=== PATIENT | male | born 1935 | race Caucasian/White ===

== ENCOUNTER 2017-07-01 00:09 | Inpatient (IN) | payer MEDICARE ==
[~2017-07-01] VITALS: Ht 175.3 cm; Wt 73.0 kg
[~2017-07-01 00:09] MED LIST: ASCO125T PO; AZIT250T3 PO; CALC600T12 PO; FENO48TA15 PO; GABA100C PO; GLYB2.5T4 PO; METF500T PO; MULT-1085 PO; OMEG500C PO
[2017-07-01] MEDS ORDERED: nitroGLYCERIN 0.4mg SUBLingual tab SL PRN ×4 (00:10→07:40)
[2017-07-01] MEDS ORDERED: aspirin 81mg tab.chew PO ONE (00:10)
[2017-07-01] MEDS ORDERED: morphine 4 MG/ML inj SYRINge IV ONE (00:30)
[2017-07-01] MEDS ORDERED: ondansetron/PF 4mg/2ml inj IV ONE (00:30)
[2017-07-01 00:44] LABS: BASOPHILS # (AUTO) 0.1 X10'3 (0-0.2); BASOPHILS % (AUTO) 0.5 % (0-1); EOSINOPHILS # (AUTO) 0.1 X10'3 (0-0.9); EOSINOPHILS % (AUTO) 0.9 % (0-6); HEMATOCRIT 43.6 % (42.0-52.0); HEMOGLOBIN 14.4 g/dl (14.0-17.9); LYMPHOCYTES # (AUTO) 2.8 X10'3 (1.1-4.8); LYMPHOCYTES % (AUTO) 28.1 % (21-51); MEAN CORPUSCULAR HEMOGLOBIN 31.7 PG (27.0-31.0); MEAN CORPUSCULAR HGB CONC 33.1 % (33.0-36.5); MEAN CORPUSCULAR VOLUME 95.7 FL (78-98); MEAN PLATELET VOLUME 7.7 FL (7.4-10.4); MONOCYTES # (AUTO) 0.7 X10'3 (0-0.9); MONOCYTES % (AUTO) 6.5 % (2-12); NEUTROPHILS # (AUTO) 6.4 X10'3 (1.8-7.7); PLATELET COUNT 283 X10'3 (140-440); RED BLOOD COUNT 4.56 X10'6 (4.70-6.10); RED CELL DISTRIBUTION WIDTH 13.7 % (11.5-14.5); WHITE BLOOD COUNT 10.1 X10'3 (4.5-11.0)
[2017-07-01 00:52] LABS: ALANINE AMINOTRANSFERASE 31 U/L (12-78); ALBUMIN 3.9 G/DL (3.4-5.0); ALKALINE PHOSPHATASE 77 IU/L (46-116); ANION GAP 14 (8-16); ASPARTATE AMINO TRANSFERASE 16 U/L (10-37); BILIRUBIN,TOTAL 0.3 MG/DL (0.1-1.0); BLOOD UREA NITROGEN 22 MG/DL (7-18); BUN/CREATININE RATIO 18.6 (5.4-32.0); CALCIUM 9.7 MG/DL (8.5-10.1); CHLORIDE 95 MMOL/L (99-107); CREATININE 1.18 MG/DL (0.60-1.10); GLUCOSE 250 MG/DL (70-104); SODIUM 130 MMOL/L (135-145); TOTAL CARBON DIOXIDE 20.9 MMOL/L (24-32); eGFR 59 ML/MIN
[2017-07-01 02:20] LABS: D-DIMER 1.47 MG/L FEU (0-0.50); INR 0.9 INR; PARTIAL THROMBOPLASTIN TIME 28 SECONDS (22-32); PROTHROMBIN TIME 9.5 SECONDS (9.0-12.0)
[2017-07-01] MEDS ORDERED: metoprolol tartrate 1mg/ml inj IV PRN ×2 (02:45→07:40)
[2017-07-01] MEDS ORDERED: morphine 4 MG/ML inj SYRINge IV PRN ×2 (02:45)
[2017-07-01] MEDS ORDERED: normal saline 500ml IV soln 500 ML IV SCH (02:45)
[2017-07-01] MEDS ORDERED: acetaminophen 325mg tablet PO PRN ×4 (02:45→19:10)
[2017-07-01] MEDS ORDERED: atropine 0.1mg/ml 10ml syringe IV PRN (02:45)
[2017-07-01] MEDS ORDERED: insulin Lispro (HumaLOG) vial - multi-dose SQ SCH ×3 (02:45→13:00)
[2017-07-01] MEDS ORDERED: glucagon, human recombinant 1mg kit SUBCUT PRN ×2 (02:45→08:30)
[2017-07-01] MEDS ORDERED: DOBUTamine-DoBUTrex 500mg/D5W 250 ML IV ONE (02:45)
[2017-07-01] MEDS ORDERED: dextrose ORAL solution 15 GM/59 ML bottle PO PRN ×4 (02:45→08:30)
[2017-07-01] MEDS ORDERED: aspirin 325mg tablet PO ONE (02:45)
[2017-07-01] MEDS ORDERED: MESSAGE TO PHARMACY PO ONE ×2 (02:45→08:30)
[2017-07-01] MEDS ORDERED: dextrose 50%-water 50ml dispensing syringe IV PRN ×6 (02:45→19:10)
[2017-07-01] MEDS ORDERED: NORepinephrine bitartrate 8 MG in NS 250 ML BAG (32 mcg/ml) IV ONE (06:00)
[2017-07-01 07:11] LABS: CHOL/HDL RATIO 2.4 (0.00-4.99); CHOLESTEROL 85 MG/DL (0-200); HDL CHOLESTEROL 36 MG/DL (35-60); LDL CHOLESTEROL 39 MG/DL (50-100); TRIGLYCERIDES 141 MG/DL (20-135)
[2017-07-01] MEDS ORDERED: CAFFEINE CITRATE 60 MG/3 ML injection vial IV PRN (07:40)
[2017-07-01] MEDS ORDERED: regadenoson 0.4mg/5ml syringe IV ONE (07:40)
[2017-07-01] MEDS: ascorbic acid 500mg tablet PO SCH (08:00)
[2017-07-01] MEDS ORDERED: calcium carbonate 500mg tablet PO SCH (08:00)
[2017-07-01] MEDS ORDERED: docusate sod 250mg capsule PO SCH (08:00)
[2017-07-01] MEDS: multivitamins, therapeutics tablet PO SCH (08:00)
[2017-07-01] MEDS ORDERED: heparin, porcine 5000 units/ml vial SQ SCH (08:00)
[2017-07-01] MEDS ORDERED: fenofibrate 48mg tablet PO SCH (08:00)
[2017-07-01] MEDS ORDERED: GLYBURIDE PO SCH (08:00)
[2017-07-01 08:15] VITALS: BP 106/51
[2017-07-01] MEDS ORDERED: enoxaparin 40mg/0.4ml syringe SUBCUT SCH (08:29)
[2017-07-01] MEDS ORDERED: enoxaparin 30mg/0.3ml syringe SUBCUT SCH (08:30)
[2017-07-01] MEDS ORDERED: metoprolol tartrate 25mg tablet PO SCH (08:55)
[2017-07-01] MEDS ORDERED: LIDOcaine 1% 30ml preserv. free vial ONE (09:29)
[2017-07-01] MEDS ORDERED: iohexol 350MG/ML 100ml bottle IV ONE (09:29)
[2017-07-01] MEDS ORDERED: fentaNYL/PF 50MCG/1 ML 2ML syringe ONE (10:39)
[2017-07-01] MEDS ORDERED: midazolam 2 mg/2 ml injection ONE (10:39)
[2017-07-01] MEDS ORDERED: HYDROcodone/acetaminophen 5mg/325mg tablet PO PRN (11:30)
[2017-07-01] MEDS ORDERED: HYDROcodone/acetaminophen 10/325mg tab PO PRN ×2 (11:30→19:10)
[2017-07-01] MEDS ORDERED: OXAZEpam 15mg capsule PO PRN (11:30)
[2017-07-01] MEDS ORDERED: proCHLORperazine 10 MG/2 ml inj IV PRN (11:30)
[2017-07-01] MEDS ORDERED: ondansetron/PF 4mg/2ml inj IV PRN (11:30)
[2017-07-01] MEDS ORDERED: cefazolin/dext.iso 2gm/50ml 50 ML IV ONE (12:25)
[2017-07-01] MEDS ORDERED: vancomycin/NS 1 GM ADD-VANTAGE 250 ML IV ONE (12:25)
[2017-07-01] MEDS ORDERED: MESSAGE TO NURSING PO ONE ×4 (12:25)
[2017-07-01] MEDS ORDERED: LORazepam 2 mg/ml vial IV ONE (13:05)
[2017-07-01] MEDS ORDERED: albuterol 2.5 MG/3 ML nebule NEB ONE (13:20)
[2017-07-01 13:25] LABS: PARTIAL THROMBOPLASTIN TIME 27 SECONDS (22-32)
[2017-07-01] MEDS ORDERED: mupirocin 2% nasal ointment 1gm UD NS SCH (13:39)
[2017-07-01] MEDS ORDERED: SUFENTANIL CITRATE 50 MCG/ML 2ml ampule IV ONE (13:46)
[2017-07-01] MEDS ORDERED: MIDAZolam 1mg/ml 10ml vial ONE (13:46)
[2017-07-01] MEDS ORDERED: 0.9 % SODIUM CHLORIDE 10 ML VIAL ONE ×3 (13:47→15:42)
[2017-07-01] MEDS ORDERED: LIDOcaine 2% 5ml jelly ONE (13:50)
[2017-07-01] MEDS ORDERED: DOPamine/D5W 400mg/250ml bag IV ONE (14:17)
[2017-07-01] MEDS ORDERED: isoflurane 100ml inhalation liquid IH ONE (14:17)
[2017-07-01] MEDS ORDERED: aminocaproic acid 250 MG/1 ML inj. ONE (14:17)
[2017-07-01] MEDS ORDERED: nitroGLYCERIN in D5W 50mg/250ml (Tridil) infusion IV ONE (14:17)
[2017-07-01] MEDS ORDERED: protamine sulf. 10mg/ml inj. IV ONE (14:17)
[2017-07-01] MEDS ORDERED: DOBUTamine/D5W 500mg/250ml premix IV ONE (14:17)
[2017-07-01 14:36] LABS: ABG BASE EXCESS -5.5 mmol/L (-2.0-3.0); ABG HCO3 18.5 mmol/L (22.0-26.0); ABG OXYGEN SATURATION 93.4 % (95-98); ABG PCO2 31.5 mmHg (35.0-45.0); ABG PH 7.386 (7.350-7.450); ABG PO2 71.4 mmHg (60.0-100.0); CL (ABG) 101 mmol/L (99-107); FCOHb 1.1 % (0.5-1.5); FMetHb 0.3 % (0.3-1.12); FO2Hb 92.1 % (94-100); GLUCOSE (ABG) 172 mg/dl (70-105); IONIZED CA (ABG) 1.15 mmol/L (1.03-1.32); K (ABG) 4.1 mmol/L (3.3-5.1); NA (ABG) 129 mmol/L (135-145); TOTAL HEMOGLOBIN 12.9 G/dl (14.0-18.0)
[2017-07-01 15:26] LABS: ABG BASE EXCESS -8.3 mmol/L (-2.0-3.0); ABG HCO3 18.2 mmol/L (22.0-26.0); ABG PCO2 41.3 mmHg (35.0-45.0); ABG PH 7.263 (7.350-7.450); ABG PO2 106.6 mmHg (60.0-100.0); CL (ABG) 104 mmol/L (99-107); FCOHb 0.6 % (0.5-1.5); FMetHb 0.1 % (0.3-1.12); FO2Hb 96.3 % (94-100); GLUCOSE (ABG) 158 mg/dl (70-105); IONIZED CA (ABG) 1.12 mmol/L (1.03-1.32); K (ABG) 3.7 mmol/L (3.3-5.1); NA (ABG) 131 mmol/L (135-145); TOTAL HEMOGLOBIN 11.4 G/dl (14.0-18.0)
[2017-07-01] MEDS ORDERED: heparin 10,000 units/1 ML INJ IR ONE (15:34)
[2017-07-01] MEDS ORDERED: papaverine 30 mg/ml 2ml inj. IA ONE (15:34)
[2017-07-01] MEDS ORDERED: propofol inj 20 ML IV ONE (15:41)
[2017-07-01] MEDS ORDERED: rocuronium 10mg/ml inj IV ONE ×3 (15:41→16:15)
[2017-07-01] MEDS ORDERED: phenylephrine 10mg/ml inj IV ONE (15:41)
[2017-07-01] MEDS ORDERED: LIDOcaine 2% (20mg/ml) 5ml vial ONE (15:41)
[2017-07-01] MEDS ORDERED: ePHEDrine 50MG/ML INJ. ONE (15:42)
[2017-07-01 16:01] LABS: ABG BASE EXCESS -5.4 mmol/L (-2.0-3.0); ABG HCO3 21.1 mmol/L (22.0-26.0); ABG OXYGEN SATURATION 95.4 % (95-98); ABG PCO2 45.5 mmHg (35.0-45.0); ABG PH 7.285 (7.350-7.450); ABG PO2 90.2 mmHg (60.0-100.0); CL (ABG) 103 mmol/L (99-107); FCOHb 0.9 % (0.5-1.5); FO2Hb 94.5 % (94-100); GLUCOSE (ABG) 189 mg/dl (70-105); IONIZED CA (ABG) 1.08 mmol/L (1.03-1.32); K (ABG) 3.9 mmol/L (3.3-5.1); NA (ABG) 131 mmol/L (135-145); TOTAL HEMOGLOBIN 11.6 G/dl (14.0-18.0)
[2017-07-01 16:06] LABS: ABG BASE EXCESS -2.2 mmol/L (-2.0-3.0); ABG HCO3 23.5 mmol/L (22.0-26.0); ABG OXYGEN SATURATION 96.6 % (95-98); ABG PCO2 44.3 mmHg (35.0-45.0); ABG PH 7.343 (7.350-7.450); ABG PO2 94.5 mmHg (60.0-100.0); CL (ABG) 102 mmol/L (99-107); FCOHb 0.9 % (0.5-1.5); FMetHb 0.3 % (0.3-1.12); FO2Hb 95.4 % (94-100); GLUCOSE (ABG) 186 mg/dl (70-105); IONIZED CA (ABG) 1.06 mmol/L (1.03-1.32); K (ABG) 3.6 mmol/L (3.3-5.1); NA (ABG) 133 mmol/L (135-145); TOTAL HEMOGLOBIN 11.4 G/dl (14.0-18.0)
[2017-07-01] MEDS ORDERED: sodium bicarbonate 1 MEQ/1 ml inj ONE ×3 (16:07)
[2017-07-01] MEDS ORDERED: midazolam 2 mg/2 ml injection IV PRN (16:25)
[2017-07-01] MEDS ORDERED: fentaNYL/PF 50MCG/1 ML 2ML syringe IV PRN (16:25)
[2017-07-01 16:41] LABS: ABG BASE EXCESS VENOUS 0.4 mmol/L; ABG HCO3 VENOUS 26.1 mmol/L; ABG PCO2 VENOUS 47.5 mmHg; ABG PO2 VENOUS 58.5 mmHg; CL (ABG) 99 mmol/L (99-107); FCOHb VENOUS 0.6 %; FHHb VENOUS 13.1 %; FMetHb VENOUS 0.6 %; FO2Hb VENOUS 85.7 %; GLUCOSE (ABG) 197 mg/dl (70-105); IONIZED CA (ABG) 0.96 mmol/L (1.03-1.32); K (ABG) 4.9 mmol/L (3.3-5.1); NA (ABG) 130 mmol/L (135-145); TOTAL HEMOGLOBIN 8.5 G/dl (14.0-18.0)
[2017-07-01 16:41] LABS: ABG BASE EXCESS -0.2 mmol/L (-2.0-3.0); ABG HCO3 24.9 mmol/L (22.0-26.0); ABG OXYGEN SATURATION 99.2 % (95-98); ABG PCO2 42.5 mmHg (35.0-45.0); ABG PH 7.385 (7.350-7.450); ABG PO2 425.5 mmHg (60.0-100.0); CL (ABG) 99 mmol/L (99-107); FCOHb 0.2 % (0.5-1.5); FMetHb 0.5 % (0.3-1.12); FO2Hb 98.5 % (94-100); GLUCOSE (ABG) 197 mg/dl (70-105); IONIZED CA (ABG) 0.94 mmol/L (1.03-1.32); K (ABG) 5.2 mmol/L (3.3-5.1); NA (ABG) 130 mmol/L (135-145); TOTAL HEMOGLOBIN 8.3 G/dl (14.0-18.0)
[2017-07-01 17:00] LABS: ABG HCO3 25.4 mmol/L (22.0-26.0); ABG OXYGEN SATURATION 99.3 % (95-98); ABG PCO2 45.2 mmHg (35.0-45.0); ABG PH 7.368 (7.350-7.450); ABG PO2 431.8 mmHg (60.0-100.0); CL (ABG) 100 mmol/L (99-107); FCOHb 0.4 % (0.5-1.5); FMetHb 0.5 % (0.3-1.12); FO2Hb 98.4 % (94-100); GLUCOSE (ABG) 198 mg/dl (70-105); IONIZED CA (ABG) 0.97 mmol/L (1.03-1.32); NA (ABG) 131 mmol/L (135-145); TOTAL HEMOGLOBIN 8.7 G/dl (14.0-18.0)
[2017-07-01] MEDS ORDERED: metFORMIN 500mg tablet PO SCH (17:00)
[2017-07-01 17:36] LABS: ABG BASE EXCESS 1.9 mmol/L (-2.0-3.0); ABG OXYGEN SATURATION 99.1 % (95-98); ABG PCO2 44.7 mmHg (35.0-45.0); ABG PH 7.399 (7.350-7.450); ABG PO2 402.8 mmHg (60.0-100.0); CL (ABG) 100 mmol/L (99-107); FCOHb 0.4 % (0.5-1.5); FMetHb 0.6 % (0.3-1.12); FO2Hb 98.1 % (94-100); GLUCOSE (ABG) 189 mg/dl (70-105); IONIZED CA (ABG) 1.37 mmol/L (1.03-1.32); K (ABG) 4.9 mmol/L (3.3-5.1); NA (ABG) 127 mmol/L (135-145); TOTAL HEMOGLOBIN 7.9 G/dl (14.0-18.0)
[2017-07-01] MEDS ORDERED: ceFAZolin 1000mg inj ONE (17:37)
[2017-07-01 18:06] LABS: ABG HCO3 21.8 mmol/L (22.0-26.0); ABG PCO2 38.1 mmHg (35.0-45.0); ABG PH 7.376 (7.350-7.450); ABG PO2 264.1 mmHg (60.0-100.0); CL (ABG) 103 mmol/L (99-107); FCOHb 0.4 % (0.5-1.5); FMetHb 0.7 % (0.3-1.12); FO2Hb 97.9 % (94-100); GLUCOSE (ABG) 177 mg/dl (70-105); IONIZED CA (ABG) 1.17 mmol/L (1.03-1.32); K (ABG) 4.5 mmol/L (3.3-5.1); NA (ABG) 131 mmol/L (135-145); TOTAL HEMOGLOBIN 8.2 G/dl (14.0-18.0)
[2017-07-01 18:36] LABS: ABG BASE EXCESS -4.6 mmol/L (-2.0-3.0); ABG HCO3 20.9 mmol/L (22.0-26.0); ABG OXYGEN SATURATION 94.5 % (95-98); ABG PCO2 40.1 mmHg (35.0-45.0); ABG PH 7.334 (7.350-7.450); ABG PO2 87.1 mmHg (60.0-100.0); CL (ABG) 104 mmol/L (99-107); FCOHb 0.3 % (0.5-1.5); FMetHb 0.7 % (0.3-1.12); FO2Hb 93.6 % (94-100); GLUCOSE (ABG) 175 mg/dl (70-105); IONIZED CA (ABG) 1.15 mmol/L (1.03-1.32); K (ABG) 3.8 mmol/L (3.3-5.1); NA (ABG) 133 mmol/L (135-145); TOTAL HEMOGLOBIN 9.4 G/dl (14.0-18.0)
[2017-07-01] MEDS ORDERED: Neutra Phos packet PO PRN (19:10)
[2017-07-01] MEDS ORDERED: sodium phosphate inj. 15 MMOL in dextrose 5%-water 150 ML IV PRN (19:10)
[2017-07-01] MEDS ORDERED: magnesium hydroxide 30ml (MOM) UD suspension PO PRN (19:10)
[2017-07-01] MEDS ORDERED: normal saline 250ml IV soln 250 ML IV PRN (19:10)
[2017-07-01] MEDS ORDERED: niCARDipine/sod cl 20mg/200ml 200 ML IV PRN (19:10)
[2017-07-01] MEDS ORDERED: potassium Cl 20mEq/100mL bag 100 ML IV PRN (19:10)
[2017-07-01] MEDS ORDERED: sodium phosphate inj. 30 MMOL in dextrose 5%-water 250 ML IV PRN (19:10)
[2017-07-01] MEDS ORDERED: nitroGLYCERIN-Tridil 50MG/D5W 250 ML IV PRN (19:10)
[2017-07-01] MEDS ORDERED: insulin regular, human inj. 100 UNITS in normal saline 100ml IV soln 100 ML IV SCH ×2 (19:10)
[2017-07-01] MEDS: sodium chloride 0.45% 1,000 ML IV SCH (19:10)
[2017-07-01] MEDS ORDERED: magnesium 4gm in 100ml NS 100 ML IV PRN (19:10)
[2017-07-01] MEDS ORDERED: albumin (Human) 5% 250ml 250 ML IV PRN (19:10)
[2017-07-01] MEDS ORDERED: DOPamine 400mg/D5W 250ml 250 ML IV PRN (19:10)
[2017-07-01 19:28] VITALS: BP 145/88
[2017-07-01 19:29] LABS: BASOPHILS % (AUTO) 0.2 % (0-1); EOSINOPHILS # (AUTO) 0.2 X10'3 (0-0.9); EOSINOPHILS % (AUTO) 1.4 % (0-6); HEMATOCRIT 32.9 % (42.0-52.0); LYMPHOCYTES # (AUTO) 1.1 X10'3 (1.1-4.8); LYMPHOCYTES % (AUTO) 9.9 % (21-51); MEAN CORPUSCULAR HEMOGLOBIN 32.4 PG (27.0-31.0); MEAN CORPUSCULAR HGB CONC 33.5 % (33.0-36.5); MEAN CORPUSCULAR VOLUME 96.6 FL (78-98); MEAN PLATELET VOLUME 6.9 FL (7.4-10.4); MONOCYTES # (AUTO) 0.4 X10'3 (0-0.9); MONOCYTES % (AUTO) 3.3 % (2-12); NEUTROPHILS # (AUTO) 9.4 X10'3 (1.8-7.7); NEUTROPHILS % (AUTO) 85.2 % (42-75); PLATELET COUNT 178 X10'3 (140-440); RED CELL DISTRIBUTION WIDTH 14.8 % (11.5-14.5)
[2017-07-01] MEDS ORDERED: sodium bicarbonate (8.4%) 1 mEq/ml syringe ONE (19:33)
[2017-07-01 19:36] LABS: ABG BASE EXCESS -5.4 mmol/L (-2.0-3.0); ABG HCO3 21.8 mmol/L (22.0-26.0); ABG OXYGEN SATURATION 88.3 % (95-98); ABG PCO2 (T) 49.9 mmHg (35.0-48.0); ABG PH (T) 7.258 (7.350-7.450); ABG PO2 (T) 67.1 mmHg (83-108); FMetHb 0.3 % (0.3-1.12); MINUTE VOLUME 9 L/min; PEEP 5 cm H2O; RESPIRATORY RATE 14 b/min; RESPIRATORY RATE (OBSERVED) 14 b/min; TIDAL VOLUME 600 mL
[2017-07-01 20:00] VITALS: BP 112/57
[2017-07-01] MEDS: docusate sod 100mg capsule PO SCH (20:00)
[2017-07-01 20:05] LABS: ALANINE AMINOTRANSFERASE 24 U/L (12-78); ALBUMIN/GLOBULIN RATIO 1.4 (1.1-1.5); ALKALINE PHOSPHATASE 44 IU/L (46-116); ANION GAP 12 (8-16); ASPARTATE AMINO TRANSFERASE 51 U/L (10-37); BILIRUBIN,TOTAL 0.3 MG/DL (0.1-1.0); BLOOD UREA NITROGEN 16 MG/DL (7-18); BUN/CREATININE RATIO 13.9 (5.4-32.0); CALCIUM 7.9 MG/DL (8.5-10.1); CHLORIDE 105 MMOL/L (99-107); CREATININE 1.15 MG/DL (0.60-1.10); GLUCOSE 138 MG/DL (70-104); MAGNESIUM 3.1 MG/DL (1.5-2.4); PHOSPHORUS 3.7 MG/DL (2.3-4.5); SODIUM 142 MMOL/L (135-145); TOTAL CARBON DIOXIDE 25.4 MMOL/L (24-32); TOTAL PROTEIN 5.2 G/DL (6.4-8.2); eGFR 61 ML/MIN
[2017-07-01 20:06] LABS: POTASSIUM 3.3 MMOL/L (3.5-5.1)
[2017-07-01 20:19] LABS: INR 1.1 INR; PARTIAL THROMBOPLASTIN TIME 27 SECONDS (22-32); PROTHROMBIN TIME 11.2 SECONDS (9.0-12.0)
[2017-07-01] MEDS: morphine 4 MG/ML inj SYRINge IV PRN (20:35)
[2017-07-01] MEDS: vancomycin/NS 1 GM ADD-VANTAGE 250 ML IV SCH (20:57)
[2017-07-01] MEDS: potassium Cl 20mEq/100mL bag 100 ML IV PRN ×2 (20:58→22:43)
[2017-07-01 21:00] VITALS: BP 108/56
[2017-07-01] MEDS ORDERED: temazepam 15mg capsule PO PRN (21:00)
[2017-07-01] MEDS ORDERED: insulin glargine (Lantus) pen - multi-dose SQ SCH ×2 (21:00)
[2017-07-01] MEDS ORDERED: propofol 1000mg/100ml bottle 100 ML IV ONE (21:26)
[2017-07-01] MEDS ORDERED: insulin R INFUSION 1 ML IV ONE (21:33)
[2017-07-01 22:00] VITALS: BP 97/53
[2017-07-01] MEDS: mupirocin 2% nasal ointment 1gm UD NS SCH (22:43)
[2017-07-01 23:00] VITALS: BP 98/50
[2017-07-02] VITALS (22 sets, daily range): BP systolic 94–115; BP diastolic 48–88
[2017-07-02] MEDS: morphine 4 MG/ML inj SYRINge IV PRN ×7 (00:02→23:26)
[2017-07-02] MEDS: potassium Cl 20mEq/100mL bag 100 ML IV PRN (00:05)
[2017-07-02] MEDS: ceFAZolin inj. 1,000 MG in normal saline 100ml IV soln 100 ML IV SCH ×3 (00:05→15:33)
[2017-07-02] MEDS: insulin regular, human inj. 100 UNITS in normal saline 100ml IV soln 100 ML IV SCH ×6 (00:10→04:05)
[2017-07-02] MEDS: ondansetron/PF 4mg/2ml inj IV PRN (02:51)
[2017-07-02 03:32] LABS: BASOPHILS % (AUTO) 0 % (0-1); EOSINOPHILS # (AUTO) 0.1 X10'3 (0-0.9); EOSINOPHILS % (AUTO) 0.9 % (0-6); HEMATOCRIT 29.8 % (42.0-52.0); HEMOGLOBIN 10.1 g/dl (14.0-17.9); LYMPHOCYTES # (AUTO) 0.5 X10'3 (1.1-4.8); LYMPHOCYTES % (AUTO) 4.8 % (21-51); MEAN CORPUSCULAR HGB CONC 33.9 % (33.0-36.5); MEAN CORPUSCULAR VOLUME 97.3 FL (78-98); MEAN PLATELET VOLUME 7.9 FL (7.4-10.4); MONOCYTES # (AUTO) 0.4 X10'3 (0-0.9); NEUTROPHILS # (AUTO) 9.6 X10'3 (1.8-7.7); NEUTROPHILS % (AUTO) 90.3 % (42-75); PLATELET COUNT 156 X10'3 (140-440); RED BLOOD COUNT 3.06 X10'6 (4.70-6.10); RED CELL DISTRIBUTION WIDTH 15.2 % (11.5-14.5); WHITE BLOOD COUNT 10.6 X10'3 (4.5-11.0)
[2017-07-02 03:47] LABS: ALANINE AMINOTRANSFERASE 29 U/L (12-78); ALBUMIN/GLOBULIN RATIO 1.3 (1.1-1.5); ALKALINE PHOSPHATASE 41 IU/L (46-116); ANION GAP 9 (8-16); ASPARTATE AMINO TRANSFERASE 67 U/L (10-37); BILIRUBIN,TOTAL 0.5 MG/DL (0.1-1.0); BLOOD UREA NITROGEN 18 MG/DL (7-18); BUN/CREATININE RATIO 15.5 (5.4-32.0); CALCIUM 8.6 MG/DL (8.5-10.1); CHLORIDE 108 MMOL/L (99-107); CREATININE 1.16 MG/DL (0.60-1.10); GLUCOSE 176 MG/DL (70-104); MAGNESIUM 2.6 MG/DL (1.5-2.4); PHOSPHORUS 2.7 MG/DL (2.3-4.5); POTASSIUM 5.1 MMOL/L (3.5-5.1); SODIUM 142 MMOL/L (135-145); TOTAL CARBON DIOXIDE 25.2 MMOL/L (24-32); TOTAL PROTEIN 5.4 G/DL (6.4-8.2); eGFR 61 ML/MIN
[2017-07-02 03:51] LABS: ABG BASE EXCESS -1.3 mmol/L (-2.0-3.0); ABG OXYGEN SATURATION 87.8 % (95-98); ABG PCO2 (T) 36.9 mmHg (35.0-48.0); ABG PH (T) 7.412 (7.350-7.450); ABG PO2 (T) 54.4 mmHg (83-108); FCOHb 0.3 % (0.5-1.5); FMetHb 0.1 % (0.3-1.12); FO2Hb 87.4 % (94-100); MINUTE VOLUME 12 L/min; PEEP 5 cm H2O; RESPIRATORY RATE 18 b/min; RESPIRATORY RATE (OBSERVED) 18 b/min; TIDAL VOLUME 600 mL; TOTAL HEMOGLOBIN 10.6 G/dl (14.0-18.0)
[2017-07-02 04:08] LABS: PARTIAL THROMBOPLASTIN TIME 27 SECONDS (22-32); PROTHROMBIN TIME 10.7 SECONDS (9.0-12.0)
[2017-07-02] MEDS ORDERED: NORepinephrine 8mg/ 250ml NS 250 ML IV SCH (05:25)
[2017-07-02] MEDS ORDERED: furosemide 40mg/4ml inj IV ONE (06:50)
[2017-07-02] MEDS ORDERED: pantoprazole 40mg Tablet.DR PO SCH (07:30)
[2017-07-02] MEDS: ascorbic acid 500mg tablet PO SCH (08:00)
[2017-07-02] MEDS: multivitamins, therapeutics tablet PO SCH (08:00)
[2017-07-02] MEDS ORDERED: aspirin 325mg tablet, delayed-release (Ecotrin) PO SCH (08:00)
[2017-07-02] MEDS: docusate sod 100mg capsule PO SCH ×2 (08:00→20:00)
[2017-07-02] MEDS: atorvastatin 10mg tablet PO SCH (08:00)
[2017-07-02] MEDS: mupirocin 2% nasal ointment 1gm UD NS SCH ×2 (08:00→20:05)
[2017-07-02] MEDS: metoprolol tartrate 12.5mg (1/2 tablet) PO SCH ×2 (08:00→20:00)
[2017-07-02] MEDS: insulin Lispro (HumaLOG) vial - multi-dose SQ SCH ×3 (09:00→18:00)
[2017-07-02 09:26] LABS: ABG BASE EXCESS 0.3 mmol/L (-2.0-3.0); ABG HCO3 24.7 mmol/L (22.0-26.0); ABG OXYGEN SATURATION 95.9 % (95-98); ABG PCO2 (T) 38.9 mmHg (35.0-48.0); ABG PO2 (T) 86.4 mmHg (83-108); FCOHb 0.3 % (0.5-1.5); FMetHb 0.3 % (0.3-1.12); FO2Hb 95.3 % (94-100); MINUTE VOLUME 10 L/min; PEEP 14 cm H2O; RESPIRATORY RATE 18 b/min; RESPIRATORY RATE (OBSERVED) 20 b/min; TIDAL VOLUME 425 mL; TOTAL HEMOGLOBIN 10.5 G/dl (14.0-18.0)
[2017-07-02] MEDS: vancomycin/NS 1 GM ADD-VANTAGE 250 ML IV SCH ×2 (09:37→18:17)
[2017-07-02] MEDS ORDERED: MESSAGE TO NURSING PO ONE (10:00)
[2017-07-02 11:01] LABS: ACTIVATED CLOTTING TIME 140 SEC (101-148)
[2017-07-02 11:05] LABS: ACT @ 1.70 U 337 SEC (193-297); ACT @ 2.84 U 506 SEC (260-420); BASELINE ACT 157 SEC (101-148); PATIENT WEIGHT 75.0k KG
[2017-07-02] MEDS: mineral oil/petrolatum ophthal oint EACHEYE SCH (20:00)
[2017-07-02] MEDS: furosemide 40mg/4ml inj IV SCH (20:00)
[2017-07-03] VITALS (23 sets, daily range): BP systolic 75–139; BP diastolic 46–80
[2017-07-03] MEDS: ceFAZolin 1GM/D5W- ADD-VANTAGE 50 ML IV SCH ×2 (00:21→07:51)
[2017-07-03] MEDS: morphine 4 MG/ML inj SYRINge IV PRN (00:58)
[2017-07-03] MEDS: insulin regular, human inj. 100 UNITS in normal saline 100ml IV soln 100 ML IV SCH ×2 (01:16)
[2017-07-03] MEDS: mineral oil/petrolatum ophthal oint EACHEYE SCH ×4 (02:00→20:00)
[2017-07-03 02:45] LABS: BASOPHILS % (AUTO) 0 % (0-1); EOSINOPHILS # (AUTO) 0.1 X10'3 (0-0.9); EOSINOPHILS % (AUTO) 0.9 % (0-6); HEMATOCRIT 27.1 % (42.0-52.0); HEMOGLOBIN 9.1 g/dl (14.0-17.9); LYMPHOCYTES # (AUTO) 0.9 X10'3 (1.1-4.8); LYMPHOCYTES % (AUTO) 7.2 % (21-51); MEAN CORPUSCULAR HGB CONC 33.7 % (33.0-36.5); MEAN CORPUSCULAR VOLUME 97.9 FL (78-98); MONOCYTES # (AUTO) 1.1 X10'3 (0-0.9); MONOCYTES % (AUTO) 8.7 % (2-12); NEUTROPHILS # (AUTO) 10.6 X10'3 (1.8-7.7); NEUTROPHILS % (AUTO) 83.2 % (42-75); PLATELET COUNT 153 X10'3 (140-440); RED BLOOD COUNT 2.77 X10'6 (4.70-6.10); RED CELL DISTRIBUTION WIDTH 15.5 % (11.5-14.5); WHITE BLOOD COUNT 12.7 X10'3 (4.5-11.0)
[2017-07-03 03:08] LABS: ALBUMIN 2.9 G/DL (3.4-5.0); ANION GAP 9 (8-16); BLOOD UREA NITROGEN 24 MG/DL (7-18); BUN/CREATININE RATIO 19.2 (5.4-32.0); CALCIUM 8.6 MG/DL (8.5-10.1); CHLORIDE 107 MMOL/L (99-107); CREATININE 1.25 MG/DL (0.60-1.10); GLUCOSE 156 MG/DL (70-104); MAGNESIUM 2.6 MG/DL (1.5-2.4); SODIUM 142 MMOL/L (135-145); TOTAL CARBON DIOXIDE 26.5 MMOL/L (24-32); eGFR 56 ML/MIN
[2017-07-03 04:31] LABS: ABG BASE EXCESS 1.9 mmol/L (-2.0-3.0); ABG OXYGEN SATURATION 91.4 % (95-98); ABG PCO2 (T) 39.4 mmHg (35.0-48.0); ABG PH (T) 7.439 (7.350-7.450); FCOHb 0.2 % (0.5-1.5); FMetHb 0.1 % (0.3-1.12); FO2Hb 91.1 % (94-100); MINUTE VOLUME 9 L/min; PATIENT TEMPERATURE 37.5; PEEP 10 cm H2O; RESPIRATORY RATE 18 b/min; RESPIRATORY RATE (OBSERVED) 18 b/min; TIDAL VOLUME 425 mL
[2017-07-03] MEDS: pantoprazole 40 MG vial IV SCH (07:51)
[2017-07-03] MEDS: mupirocin 2% nasal ointment 1gm UD NS SCH (07:51)
[2017-07-03] MEDS: atorvastatin 10mg tablet PO SCH (07:51)
[2017-07-03] MEDS: metoprolol tartrate 12.5mg (1/2 tablet) PO SCH ×2 (07:51→20:00)
[2017-07-03] MEDS: ascorbic acid 500mg tablet PO SCH (07:52)
[2017-07-03] MEDS: furosemide 40mg/4ml inj IV SCH ×2 (07:52→20:00)
[2017-07-03] MEDS: aspirin 81mg tab.chew PO SCH (07:56)
[2017-07-03] MEDS: multivitamin oral liquid (Certavite) 5ml cup PO SCH (07:57)
[2017-07-03] MEDS: docusate sodium 100mg/10ml UD cup PO SCH ×2 (07:57→20:01)
[2017-07-03] MEDS ORDERED: FENTANYL-0.9 % NACL/PF 100 ML IV PRN (08:20)
[2017-07-03] MEDS: dexmedetomidin/NS 400mcg/100ml 100 ML IV SCH ×2 (08:58→17:01)
[2017-07-03] MEDS: insulin Lispro (HumaLOG) vial - multi-dose SQ SCH ×3 (09:00→18:00)
[2017-07-03 12:00] LABS: ABG BASE EXCESS 2.3 mmol/L (-2.0-3.0); ABG HCO3 25.5 mmol/L (22.0-26.0); ABG OXYGEN SATURATION 91.5 % (95-98); ABG PCO2 (T) 35.2 mmHg (35.0-48.0); ABG PH (T) 7.481 (7.350-7.450); ABG PO2 (T) 66.4 mmHg (83-108); ALLEN'S TEST Positive; FCOHb 0.3 % (0.5-1.5); FMetHb 0.3 % (0.3-1.12); MINUTE VOLUME 10 L/min; PATIENT TEMPERATURE 37.8; PEEP 10 cm H2O; RESPIRATORY RATE 18 b/min; RESPIRATORY RATE (OBSERVED) 18 b/min; TIDAL VOLUME 425 mL; TOTAL HEMOGLOBIN 9.3 G/dl (14.0-18.0)
[2017-07-03] MEDS: sodium chloride 0.45% 1,000 ML IV SCH (19:10)
[2017-07-03] MEDS: insulin regular, human vial - multi-dose SQ SCH (20:07)
[2017-07-03] MEDS: insulin glargine (Lantus) pen - multi-dose SQ SCH (21:27)
[2017-07-04] VITALS (24 sets, daily range): BP systolic 82–113; BP diastolic 50–70
[2017-07-04] MEDS: mineral oil/petrolatum ophthal oint EACHEYE SCH ×4 (02:00→19:48)
[2017-07-04] MEDS: insulin regular, human vial - multi-dose SQ SCH ×2 (02:49→07:32)
[2017-07-04 03:25] LABS: BASOPHILS % (AUTO) 0.1 % (0-1); EOSINOPHILS % (AUTO) 0 % (0-6); HEMATOCRIT 25.1 % (42.0-52.0); HEMOGLOBIN 8.4 g/dl (14.0-17.9); LYMPHOCYTES # (AUTO) 0.7 X10'3 (1.1-4.8); LYMPHOCYTES % (AUTO) 7.5 % (21-51); MEAN CORPUSCULAR HEMOGLOBIN 32.8 PG (27.0-31.0); MEAN CORPUSCULAR HGB CONC 33.5 % (33.0-36.5); MEAN CORPUSCULAR VOLUME 97.9 FL (78-98); MEAN PLATELET VOLUME 8.1 FL (7.4-10.4); MONOCYTES # (AUTO) 0.5 X10'3 (0-0.9); MONOCYTES % (AUTO) 5.9 % (2-12); NEUTROPHILS % (AUTO) 86.5 % (42-75); PLATELET COUNT 114 X10'3 (140-440); RED BLOOD COUNT 2.56 X10'6 (4.70-6.10); RED CELL DISTRIBUTION WIDTH 15.3 % (11.5-14.5); WHITE BLOOD COUNT 9.2 X10'3 (4.5-11.0)
[2017-07-04 03:42] LABS: ALBUMIN 2.6 G/DL (3.4-5.0); ANION GAP 7 (8-16); BLOOD UREA NITROGEN 32 MG/DL (7-18); BUN/CREATININE RATIO 29.9 (5.4-32.0); CALCIUM 8.4 MG/DL (8.5-10.1); CHLORIDE 104 MMOL/L (99-107); CREATININE 1.07 MG/DL (0.60-1.10); GLUCOSE 265 MG/DL (70-104); MAGNESIUM 2.4 MG/DL (1.5-2.4); PHOSPHORUS 3.7 MG/DL (2.3-4.5); POTASSIUM 4.6 MMOL/L (3.5-5.1); SODIUM 138 MMOL/L (135-145); TOTAL CARBON DIOXIDE 26.6 MMOL/L (24-32); eGFR 66 ML/MIN
[2017-07-04] MEDS: dexmedetomidin/NS 400mcg/100ml 100 ML IV SCH (04:58)
[2017-07-04 05:15] LABS: ABG BASE EXCESS 1.9 mmol/L (-2.0-3.0); ABG HCO3 24.9 mmol/L (22.0-26.0); ABG OXYGEN SATURATION 94.6 % (95-98); ABG PCO2 (T) 32.9 mmHg (35.0-48.0); ABG PH (T) 7.497 (7.350-7.450); ABG PO2 (T) 76.7 mmHg (83-108); FCOHb 0.3 % (0.5-1.5); FMetHb 0.1 % (0.3-1.12); FO2Hb 94.2 % (94-100); MINUTE VOLUME 10 L/min; PATIENT TEMPERATURE 37.1; PEEP 5 cm H2O; RESPIRATORY RATE 18 b/min; RESPIRATORY RATE (OBSERVED) 22 b/min; TIDAL VOLUME 425 mL; TOTAL HEMOGLOBIN 9.4 G/dl (14.0-18.0)
[2017-07-04] MEDS: docusate sodium 100mg/10ml UD cup PO SCH ×2 (07:21→20:04)
[2017-07-04] MEDS: ascorbic acid 500mg tablet PO SCH (07:21)
[2017-07-04] MEDS: multivitamin oral liquid (Certavite) 5ml cup PO SCH (07:21)
[2017-07-04] MEDS: furosemide 40mg/4ml inj IV SCH ×2 (07:21→20:04)
[2017-07-04] MEDS: pantoprazole 40 MG vial IV SCH (07:21)
[2017-07-04] MEDS: aspirin 81mg tab.chew PO SCH (07:22)
[2017-07-04] MEDS: atorvastatin 10mg tablet PO SCH (07:22)
[2017-07-04] MEDS: HYDROcodone/acetaminophen 10/325mg tab PO PRN ×4 (07:22→22:55)
[2017-07-04] MEDS: metoprolol tartrate 12.5mg (1/2 tablet) PO SCH ×2 (07:23→20:00)
[2017-07-04] MEDS: insulin Lispro (HumaLOG) vial - multi-dose SQ SCH ×4 (09:00→20:19)
[2017-07-04] MEDS: insulin regular, human inj. 100 UNITS in normal saline 100ml IV soln 100 ML IV SCH ×2 (09:05)
[2017-07-04] MEDS: morphine 4 MG/ML inj SYRINge IV PRN ×3 (15:38→22:56)
[2017-07-04] MEDS: ondansetron/PF 4mg/2ml inj IV PRN (16:56)
[2017-07-04] MEDS: insulin glargine (Lantus) pen - multi-dose SQ SCH (20:21)
[2017-07-05] VITALS (24 sets, daily range): BP systolic 87–142; BP diastolic 44–70
[2017-07-05] MEDS: mineral oil/petrolatum ophthal oint EACHEYE SCH ×4 (02:00→19:10)
[2017-07-05 02:49] LABS: BASOPHILS % (AUTO) 0.5 % (0-1); EOSINOPHILS % (AUTO) 0 % (0-6); HEMOGLOBIN 8.4 g/dl (14.0-17.9); LYMPHOCYTES # (AUTO) 1.1 X10'3 (1.1-4.8); LYMPHOCYTES % (AUTO) 12.6 % (21-51); MEAN CORPUSCULAR HEMOGLOBIN 32.8 PG (27.0-31.0); MEAN CORPUSCULAR HGB CONC 33.7 % (33.0-36.5); MEAN CORPUSCULAR VOLUME 97.4 FL (78-98); MEAN PLATELET VOLUME 8.1 FL (7.4-10.4); MONOCYTES # (AUTO) 0.6 X10'3 (0-0.9); MONOCYTES % (AUTO) 6.1 % (2-12); NEUTROPHILS # (AUTO) 7.4 X10'3 (1.8-7.7); NEUTROPHILS % (AUTO) 80.8 % (42-75); PLATELET COUNT 132 X10'3 (140-440); RED BLOOD COUNT 2.57 X10'6 (4.70-6.10); RED CELL DISTRIBUTION WIDTH 15.3 % (11.5-14.5); WHITE BLOOD COUNT 9.1 X10'3 (4.5-11.0)
[2017-07-05 03:09] LABS: ALBUMIN 2.5 G/DL (3.4-5.0); ANION GAP 8 (8-16); BLOOD UREA NITROGEN 34 MG/DL (7-18); BUN/CREATININE RATIO 31.5 (5.4-32.0); CALCIUM 8.5 MG/DL (8.5-10.1); CHLORIDE 101 MMOL/L (99-107); CREATININE 1.08 MG/DL (0.60-1.10); GLUCOSE 133 MG/DL (70-104); MAGNESIUM 2.1 MG/DL (1.5-2.4); PHOSPHORUS 5.1 MG/DL (2.3-4.5); POTASSIUM 3.8 MMOL/L (3.5-5.1); PREALBUMIN 15.4 MG/DL (19-36); SODIUM 137 MMOL/L (135-145); TOTAL CARBON DIOXIDE 28.4 MMOL/L (24-32); eGFR 66 ML/MIN
[2017-07-05] MEDS: morphine 4 MG/ML inj SYRINge IV PRN (04:09)
[2017-07-05] MEDS: docusate sodium 100mg/10ml UD cup PO SCH ×2 (08:00→18:59)
[2017-07-05] MEDS: pantoprazole 40 MG vial IV SCH (08:50)
[2017-07-05] MEDS: furosemide 40mg/4ml inj IV SCH (08:50)
[2017-07-05] MEDS: multivitamin oral liquid (Certavite) 5ml cup PO SCH (08:50)
[2017-07-05] MEDS: atorvastatin 10mg tablet PO SCH (08:50)
[2017-07-05] MEDS: aspirin 81mg tab.chew PO SCH (08:51)
[2017-07-05] MEDS: ascorbic acid 500mg tablet PO SCH (08:51)
[2017-07-05] MEDS: metoprolol tartrate 12.5mg (1/2 tablet) PO SCH ×2 (08:51→18:59)
[2017-07-05] MEDS: HYDROcodone/acetaminophen 10/325mg tab PO PRN (08:51)
[2017-07-05] MEDS: Protein Shake (high protein) 240ml (8oz) cup PO SCH ×3 (13:12→16:07)
[2017-07-05] MEDS: dexmedetomidin/NS 400mcg/100ml 100 ML IV SCH (13:12)
[2017-07-05] MEDS ORDERED: potassium Cl 20 mEq SR tablet PO PRN ×2 (13:15)
[2017-07-05] MEDS: insulin Lispro (HumaLOG) vial - multi-dose SQ SCH (13:34)
[2017-07-05] MEDS: ondansetron/PF 4mg/2ml inj IV PRN (16:53)
[2017-07-05] MEDS: metoclopramide 5 mg/ml inj IV PRN (18:58)
[2017-07-05] MEDS: furosemide 40mg tablet PO SCH (19:10)
[2017-07-05] MEDS: sodium chloride 0.45% 1,000 ML IV SCH (19:10)
[2017-07-05] MEDS: insulin glargine (Lantus) pen - multi-dose SQ SCH (22:24)
[2017-07-06] VITALS (24 sets, daily range): BP systolic 100–133; BP diastolic 60–95
[2017-07-06] MEDS: mineral oil/petrolatum ophthal oint EACHEYE SCH ×4 (02:00→19:12)
[2017-07-06 03:54] LABS: ALANINE AMINOTRANSFERASE 21 U/L (12-78); ALBUMIN 2.5 G/DL (3.4-5.0); ALBUMIN/GLOBULIN RATIO 0.7 (1.1-1.5); ALKALINE PHOSPHATASE 51 IU/L (46-116); ANION GAP 8 (8-16); ASPARTATE AMINO TRANSFERASE 18 U/L (10-37); BILIRUBIN,TOTAL 0.5 MG/DL (0.1-1.0); BLOOD UREA NITROGEN 31 MG/DL (7-18); BUN/CREATININE RATIO 32.3 (5.4-32.0); CALCIUM 8.2 MG/DL (8.5-10.1); CHLORIDE 99 MMOL/L (99-107); CREATININE 0.96 MG/DL (0.60-1.10); GLUCOSE 157 MG/DL (70-104); MAGNESIUM 2.3 MG/DL (1.5-2.4); PHOSPHORUS 4.6 MG/DL (2.3-4.5); POTASSIUM 3.4 MMOL/L (3.5-5.1); SODIUM 136 MMOL/L (135-145); TOTAL CARBON DIOXIDE 29.1 MMOL/L (24-32); eGFR 75 ML/MIN
[2017-07-06] MEDS: potassium Cl 20mEq/100mL bag 100 ML IV PRN ×4 (04:34→22:36)
[2017-07-06] MEDS: ondansetron/PF 4mg/2ml inj IV PRN (04:39)
[2017-07-06 04:52] LABS: BASOPHILS % (AUTO) 0.3 % (0-1); EOSINOPHILS # (AUTO) 0.1 X10'3 (0-0.9); EOSINOPHILS % (AUTO) 0.8 % (0-6); HEMATOCRIT 28.2 % (42.0-52.0); HEMOGLOBIN 9.5 g/dl (14.0-17.9); LYMPHOCYTES # (AUTO) 0.9 X10'3 (1.1-4.8); LYMPHOCYTES % (AUTO) 11.5 % (21-51); MEAN CORPUSCULAR HEMOGLOBIN 32.5 PG (27.0-31.0); MEAN CORPUSCULAR HGB CONC 33.6 % (33.0-36.5); MEAN CORPUSCULAR VOLUME 96.8 FL (78-98); MEAN PLATELET VOLUME 7.9 FL (7.4-10.4); MONOCYTES # (AUTO) 0.5 X10'3 (0-0.9); MONOCYTES % (AUTO) 7.1 % (2-12); NEUTROPHILS # (AUTO) 6.1 X10'3 (1.8-7.7); NEUTROPHILS % (AUTO) 80.3 % (42-75); PLATELET COUNT 157 X10'3 (140-440); RED BLOOD COUNT 2.92 X10'6 (4.70-6.10); RED CELL DISTRIBUTION WIDTH 14.8 % (11.5-14.5); WHITE BLOOD COUNT 7.5 X10'3 (4.5-11.0)
[2017-07-06] MEDS: metoclopramide 5 mg/ml inj IV PRN (05:28)
[2017-07-06] MEDS: pantoprazole 40mg Tablet.DR PO SCH (07:30)
[2017-07-06] MEDS: atorvastatin 10mg tablet PO SCH (08:00)
[2017-07-06] MEDS: aspirin 81mg tab.chew PO SCH (08:00)
[2017-07-06] MEDS: furosemide 40mg tablet PO SCH ×2 (08:00→20:08)
[2017-07-06] MEDS: docusate sodium 100mg/10ml UD cup PO SCH ×2 (08:00→20:08)
[2017-07-06] MEDS: multivitamin oral liquid (Certavite) 5ml cup PO SCH (08:00)
[2017-07-06] MEDS: ascorbic acid 500mg tablet PO SCH (08:00)
[2017-07-06] MEDS: metoprolol tartrate 12.5mg (1/2 tablet) PO SCH ×2 (08:00→20:08)
[2017-07-06] MEDS: fenofibrate 48mg tablet PO SCH (08:30)
[2017-07-06] MEDS: potassium 20mEq/D5LR 1,000 ML IV SCH ×2 (12:21→19:11)
[2017-07-06] MEDS ORDERED: diatrozoate meglu/diatrozoate sod (37% iodine) 120ML oral solution ONE (12:25)
[2017-07-06] MEDS ORDERED: morphine 4 MG/ML inj SYRINge IV PRN ×2 (13:20)
[2017-07-06] MEDS ORDERED: iohexol 300mg/ml 100ml inj. ONE (13:24)
[2017-07-06] MEDS: MESSAGE TO NURSING PO SCH (13:30)
[2017-07-06] MEDS: insulin Lispro (HumaLOG) vial - multi-dose SQ SCH (15:21)
[2017-07-06] MEDS ORDERED: iohexol 350 MG/1 ML 200ml bottle ONE (16:04)
[2017-07-06] MEDS ORDERED: LIDOcaine 1% w/EPI 1:100,000 30ml vial (MDV) ONE (16:04)
[2017-07-06] MEDS ORDERED: midazolam 2 mg/2 ml injection ONE (16:24)
[2017-07-06] MEDS: Protein Shake (high protein) 240ml (8oz) cup PO SCH (18:00)
[2017-07-06] MEDS ORDERED: mineral oil 133ml enema RC PRN (20:05)
[2017-07-06] MEDS: metoclopramide 5 mg/ml inj IV SCH (20:07)
[2017-07-06] MEDS: magnesium hydroxide 30ml (MOM) UD suspension PO SCH (20:08)
[2017-07-06 20:18] LABS: MAGNESIUM 2.3 MG/DL (1.5-2.4); POTASSIUM 3.8 MMOL/L (3.5-5.1)
[2017-07-06] MEDS: insulin glargine (Lantus) pen - multi-dose SQ SCH (21:00)
[2017-07-07] VITALS (25 sets, daily range): BP systolic 98–147; BP diastolic 57–76
[2017-07-07] MEDS: magnesium 2GM in 50ml NS 50 ML IV PRN (00:31)
[2017-07-07] MEDS: mineral oil/petrolatum ophthal oint EACHEYE SCH ×4 (01:37→19:46)
[2017-07-07] MEDS: metoclopramide 5 mg/ml inj IV SCH ×4 (02:27→20:33)
[2017-07-07 03:16] LABS: ALANINE AMINOTRANSFERASE 13 U/L (12-78); ALBUMIN 2.3 G/DL (3.4-5.0); ALBUMIN/GLOBULIN RATIO 0.7 (1.1-1.5); ALKALINE PHOSPHATASE 54 IU/L (46-116); ANION GAP 7 (8-16); ASPARTATE AMINO TRANSFERASE 15 U/L (10-37); BILIRUBIN,TOTAL 0.7 MG/DL (0.1-1.0); BLOOD UREA NITROGEN 22 MG/DL (7-18); BUN/CREATININE RATIO 23.2 (5.4-32.0); CHLORIDE 101 MMOL/L (99-107); CREATININE 0.95 MG/DL (0.60-1.10); GLUCOSE 246 MG/DL (70-104); MAGNESIUM 3.1 MG/DL (1.5-2.4); PHOSPHORUS 3.3 MG/DL (2.3-4.5); POTASSIUM 3.9 MMOL/L (3.5-5.1); SODIUM 136 MMOL/L (135-145); TOTAL CARBON DIOXIDE 27.8 MMOL/L (24-32); TOTAL PROTEIN 5.7 G/DL (6.4-8.2); eGFR 76 ML/MIN
[2017-07-07 03:39] LABS: BASOPHILS % (AUTO) 0 % (0-1); EOSINOPHILS # (AUTO) 0.1 X10'3 (0-0.9); EOSINOPHILS % (AUTO) 1.6 % (0-6); HEMATOCRIT 28.5 % (42.0-52.0); HEMOGLOBIN 9.5 g/dl (14.0-17.9); LYMPHOCYTES # (AUTO) 0.4 X10'3 (1.1-4.8); LYMPHOCYTES % (AUTO) 4.6 % (21-51); MEAN CORPUSCULAR HEMOGLOBIN 32.4 PG (27.0-31.0); MEAN CORPUSCULAR HGB CONC 33.5 % (33.0-36.5); MEAN CORPUSCULAR VOLUME 96.8 FL (78-98); MEAN PLATELET VOLUME 8.3 FL (7.4-10.4); MONOCYTES # (AUTO) 0.5 X10'3 (0-0.9); MONOCYTES % (AUTO) 6.5 % (2-12); NEUTROPHILS % (AUTO) 87.3 % (42-75); PLATELET COUNT 178 X10'3 (140-440); RED BLOOD COUNT 2.94 X10'6 (4.70-6.10); RED CELL DISTRIBUTION WIDTH 14.8 % (11.5-14.5)
[2017-07-07] MEDS: potassium Cl 20mEq/100mL bag 100 ML IV PRN ×2 (04:13→08:37)
[2017-07-07] MEDS: Protein Shake (high protein) 240ml (8oz) cup PO SCH ×3 (08:00→18:00)
[2017-07-07] MEDS: ascorbic acid 500mg tablet PO SCH (08:00)
[2017-07-07] MEDS: MESSAGE TO NURSING PO SCH (08:00)
[2017-07-07] MEDS: multivitamin oral liquid (Certavite) 5ml cup PO SCH (08:00)
[2017-07-07] MEDS: magnesium hydroxide 30ml (MOM) UD suspension PO SCH ×2 (08:31→20:00)
[2017-07-07] MEDS: pantoprazole 40mg Tablet.DR PO SCH (08:31)
[2017-07-07] MEDS: furosemide 40mg tablet PO SCH ×2 (08:31→20:33)
[2017-07-07] MEDS: atorvastatin 10mg tablet PO SCH (08:31)
[2017-07-07] MEDS: metoprolol tartrate 12.5mg (1/2 tablet) PO SCH ×2 (08:31→20:33)
[2017-07-07] MEDS: docusate sodium 100mg/10ml UD cup PO SCH (08:31)
[2017-07-07] MEDS: fenofibrate 48mg tablet PO SCH (08:32)
[2017-07-07] MEDS: aspirin 81mg tab.chew PO SCH (08:32)
[2017-07-07] MEDS: insulin Lispro (HumaLOG) vial - multi-dose SQ SCH (13:19)
[2017-07-07] MEDS: sodium chloride 0.45% 1,000 ML IV SCH (17:06)
[2017-07-07] MEDS: docusate sod 100mg capsule PO SCH (20:33)
[2017-07-07] MEDS: insulin glargine (Lantus) pen - multi-dose SQ SCH (20:37)
[2017-07-08] VITALS (16 sets, daily range): BP systolic 86–118; BP diastolic 57–70
[2017-07-08] MEDS: metoclopramide 5 mg/ml inj IV SCH ×4 (01:44→20:51)
[2017-07-08] MEDS: HYDROcodone/acetaminophen 10/325mg tab PO PRN ×2 (01:45→20:51)
[2017-07-08] MEDS: mineral oil/petrolatum ophthal oint EACHEYE SCH ×4 (02:00→19:27)
[2017-07-08 05:03] LABS: BASOPHILS % (AUTO) 0.2 % (0-1); EOSINOPHILS # (AUTO) 0.2 X10'3 (0-0.9); EOSINOPHILS % (AUTO) 2.3 % (0-6); HEMOGLOBIN 9.3 g/dl (14.0-17.9); LYMPHOCYTES # (AUTO) 0.8 X10'3 (1.1-4.8); LYMPHOCYTES % (AUTO) 12.6 % (21-51); MEAN CORPUSCULAR HEMOGLOBIN 32.2 PG (27.0-31.0); MEAN CORPUSCULAR HGB CONC 33.3 % (33.0-36.5); MEAN CORPUSCULAR VOLUME 96.7 FL (78-98); MEAN PLATELET VOLUME 8.1 FL (7.4-10.4); MONOCYTES # (AUTO) 0.8 X10'3 (0-0.9); MONOCYTES % (AUTO) 11.5 % (2-12); NEUTROPHILS # (AUTO) 4.8 X10'3 (1.8-7.7); NEUTROPHILS % (AUTO) 73.4 % (42-75); PLATELET COUNT 202 X10'3 (140-440); WHITE BLOOD COUNT 6.5 X10'3 (4.5-11.0)
[2017-07-08 05:05] LABS: ALANINE AMINOTRANSFERASE 13 U/L (12-78); ALBUMIN 2.2 G/DL (3.4-5.0); ALBUMIN/GLOBULIN RATIO 0.6 (1.1-1.5); ALKALINE PHOSPHATASE 57 IU/L (46-116); ANION GAP 6 (8-16); ASPARTATE AMINO TRANSFERASE 14 U/L (10-37); BILIRUBIN,TOTAL 0.6 MG/DL (0.1-1.0); BLOOD UREA NITROGEN 24 MG/DL (7-18); BUN/CREATININE RATIO 23.1 (5.4-32.0); CALCIUM 7.9 MG/DL (8.5-10.1); CHLORIDE 100 MMOL/L (99-107); CREATININE 1.04 MG/DL (0.60-1.10); GLUCOSE 166 MG/DL (70-104); MAGNESIUM 2.4 MG/DL (1.5-2.4); PHOSPHORUS 3.9 MG/DL (2.3-4.5); POTASSIUM 3.6 MMOL/L (3.5-5.1); SODIUM 135 MMOL/L (135-145); TOTAL CARBON DIOXIDE 28.9 MMOL/L (24-32); TOTAL PROTEIN 5.6 G/DL (6.4-8.2); eGFR 69 ML/MIN
[2017-07-08] MEDS: magnesium 2GM in 50ml NS 50 ML IV PRN (05:59)
[2017-07-08] MEDS ORDERED: multivitamins, therapeutics tablet PO SCH (08:00)
[2017-07-08] MEDS: MESSAGE TO NURSING PO SCH (08:00)
[2017-07-08] MEDS: Protein Shake (high protein) 240ml (8oz) cup PO SCH ×3 (08:00→18:07)
[2017-07-08] MEDS: magnesium hydroxide 30ml (MOM) UD suspension PO SCH ×2 (08:00→20:59)
[2017-07-08] MEDS: pantoprazole 40mg Tablet.DR PO SCH (08:01)
[2017-07-08] MEDS: metoprolol tartrate 12.5mg (1/2 tablet) PO SCH ×2 (08:01→20:49)
[2017-07-08] MEDS: aspirin 325mg tablet PO SCH (08:01)
[2017-07-08] MEDS: ascorbic acid 500mg tablet PO SCH (08:01)
[2017-07-08] MEDS: multivitamins, therapeutics tablet PO SCH (08:02)
[2017-07-08] MEDS: fenofibrate 48mg tablet PO SCH (08:02)
[2017-07-08] MEDS: furosemide 40mg tablet PO SCH ×2 (08:02→20:51)
[2017-07-08] MEDS: atorvastatin 10mg tablet PO SCH (08:02)
[2017-07-08] MEDS: docusate sod 100mg capsule PO SCH ×2 (08:04→20:51)
[2017-07-08] MEDS: insulin Lispro (HumaLOG) vial - multi-dose SQ SCH ×2 (09:06→14:30)
[2017-07-08] MEDS ORDERED: acetaminophen 325mg tablet PO PRN (09:40)
[2017-07-08] MEDS: insulin glargine (Lantus) pen - multi-dose SQ SCH (20:58)
[2017-07-09] VITALS (12 sets, daily range): BP systolic 90–115; BP diastolic 54–70
[2017-07-09] MEDS: mineral oil/petrolatum ophthal oint EACHEYE SCH ×4 (02:00→18:31)
[2017-07-09] MEDS: metoclopramide 5 mg/ml inj IV SCH ×4 (02:12→20:10)
[2017-07-09] MEDS: ondansetron/PF 4mg/2ml inj IV PRN ×2 (02:41→08:03)
[2017-07-09 05:59] LABS: ALBUMIN 2.4 G/DL (3.4-5.0); ANION GAP 10 (8-16); BLOOD UREA NITROGEN 29 MG/DL (7-18); BUN/CREATININE RATIO 26.6 (5.4-32.0); CALCIUM 8.2 MG/DL (8.5-10.1); CHLORIDE 96 MMOL/L (99-107); CREATININE 1.09 MG/DL (0.60-1.10); MAGNESIUM 2.5 MG/DL (1.5-2.4); POTASSIUM 3.5 MMOL/L (3.5-5.1); PREALBUMIN 14.5 MG/DL (19-36); SODIUM 133 MMOL/L (135-145); TOTAL CARBON DIOXIDE 26.6 MMOL/L (24-32); eGFR 65 ML/MIN
[2017-07-09 06:02] LABS: GLUCOSE 173 MG/DL (70-104)
[2017-07-09] MEDS: pantoprazole 40mg Tablet.DR PO SCH (07:30)
[2017-07-09] MEDS: Protein Shake (high protein) 240ml (8oz) cup PO SCH ×3 (07:35→18:00)
[2017-07-09] MEDS: aspirin 325mg tablet PO SCH (08:00)
[2017-07-09] MEDS: ascorbic acid 500mg tablet PO SCH (08:00)
[2017-07-09] MEDS: docusate sod 100mg capsule PO SCH ×2 (08:00→20:00)
[2017-07-09] MEDS: furosemide 40mg tablet PO SCH ×2 (08:00→20:10)
[2017-07-09] MEDS: atorvastatin 10mg tablet PO SCH (08:00)
[2017-07-09] MEDS: metoprolol tartrate 12.5mg (1/2 tablet) PO SCH ×2 (08:00→20:10)
[2017-07-09] MEDS: magnesium hydroxide 30ml (MOM) UD suspension PO SCH ×2 (08:00→20:00)
[2017-07-09] MEDS: multivitamins, therapeutics tablet PO SCH (08:00)
[2017-07-09] MEDS: fenofibrate 48mg tablet PO SCH (08:30)
[2017-07-09 10:10] LABS: BASOPHILS % (AUTO) 0.1 % (0-1); EOSINOPHILS % (AUTO) 0.5 % (0-6); HEMATOCRIT 31.8 % (42.0-52.0); HEMOGLOBIN 10.5 g/dl (14.0-17.9); LYMPHOCYTES # (AUTO) 0.5 X10'3 (1.1-4.8); LYMPHOCYTES % (AUTO) 9.7 % (21-51); MEAN CORPUSCULAR HEMOGLOBIN 31.9 PG (27.0-31.0); MEAN CORPUSCULAR VOLUME 96.7 FL (78-98); MEAN PLATELET VOLUME 8.3 FL (7.4-10.4); MONOCYTES # (AUTO) 0.3 X10'3 (0-0.9); MONOCYTES % (AUTO) 6.8 % (2-12); NEUTROPHILS # (AUTO) 3.9 X10'3 (1.8-7.7); NEUTROPHILS % (AUTO) 82.9 % (42-75); PLATELET COUNT 287 X10'3 (140-440); RED BLOOD COUNT 3.29 X10'6 (4.70-6.10); RED CELL DISTRIBUTION WIDTH 15.3 % (11.5-14.5); WHITE BLOOD COUNT 4.7 X10'3 (4.5-11.0)
[2017-07-09] MEDS: normal saline 1000ml 1,000 ML IV SCH (17:20)
[2017-07-09] MEDS: insulin glargine (Lantus) pen - multi-dose SQ SCH (20:15)
[2017-07-10] VITALS (20 sets, daily range): BP systolic 86–111; BP diastolic 42–55
[2017-07-10] MEDS: mineral oil/petrolatum ophthal oint EACHEYE SCH ×4 (01:07→20:00)
[2017-07-10] MEDS: metoclopramide 5 mg/ml inj IV SCH ×4 (02:03→19:35)
[2017-07-10 05:45] LABS: BASOPHILS % (AUTO) 0.2 % (0-1); EOSINOPHILS # (AUTO) 0.1 X10'3 (0-0.9); EOSINOPHILS % (AUTO) 1.1 % (0-6); HEMATOCRIT 25.6 % (42.0-52.0); HEMOGLOBIN 8.7 g/dl (14.0-17.9); LYMPHOCYTES # (AUTO) 0.8 X10'3 (1.1-4.8); LYMPHOCYTES % (AUTO) 13.6 % (21-51); MEAN CORPUSCULAR HEMOGLOBIN 32.4 PG (27.0-31.0); MEAN CORPUSCULAR HGB CONC 34.1 % (33.0-36.5); MEAN CORPUSCULAR VOLUME 95.2 FL (78-98); MEAN PLATELET VOLUME 8.1 FL (7.4-10.4); MONOCYTES # (AUTO) 0.4 X10'3 (0-0.9); MONOCYTES % (AUTO) 7.1 % (2-12); NEUTROPHILS # (AUTO) 4.6 X10'3 (1.8-7.7); PLATELET COUNT 244 X10'3 (140-440); RED BLOOD COUNT 2.69 X10'6 (4.70-6.10); RED CELL DISTRIBUTION WIDTH 15.1 % (11.5-14.5); WHITE BLOOD COUNT 5.9 X10'3 (4.5-11.0)
[2017-07-10 06:00] LABS: ALBUMIN 2.1 G/DL (3.4-5.0); ANION GAP 10 (8-16); BLOOD UREA NITROGEN 27 MG/DL (7-18); CALCIUM 7.5 MG/DL (8.5-10.1); CHLORIDE 99 MMOL/L (99-107); GLUCOSE 150 MG/DL (70-104); MAGNESIUM 2.3 MG/DL (1.5-2.4); POTASSIUM 3.7 MMOL/L (3.5-5.1); SODIUM 137 MMOL/L (135-145); eGFR 72 ML/MIN
[2017-07-10] MEDS: Protein Shake (high protein) 240ml (8oz) cup PO SCH ×3 (08:00→18:00)
[2017-07-10] MEDS: magnesium hydroxide 30ml (MOM) UD suspension PO SCH ×2 (08:00→20:00)
[2017-07-10] MEDS ORDERED: magnesium 4gm in 100ml NS 100 ML IV PRN (08:40)
[2017-07-10] MEDS: aspirin 325mg tablet PO SCH (08:40)
[2017-07-10] MEDS ORDERED: magnesium Cl slow-release 64mg tablet PO PRN (08:40)
[2017-07-10] MEDS ORDERED: potassium Cl 40MEQ/NS 500ml 500 ML IV PRN ×2 (08:40)
[2017-07-10] MEDS: furosemide 40mg tablet PO SCH ×2 (08:40→19:36)
[2017-07-10] MEDS: atorvastatin 10mg tablet PO SCH (08:40)
[2017-07-10] MEDS ORDERED: potassium Cl 20 mEq SR tablet PO PRN (08:40)
[2017-07-10] MEDS: pantoprazole 40mg Tablet.DR PO SCH (08:40)
[2017-07-10] MEDS: docusate sod 100mg capsule PO SCH ×2 (08:40→20:00)
[2017-07-10] MEDS ORDERED: magnesium 2GM in 50ml NS 50 ML IV PRN (08:40)
[2017-07-10] MEDS: normal saline 1000ml 1,000 ML IV SCH ×3 (08:40→19:36)
[2017-07-10] MEDS: fenofibrate 48mg tablet PO SCH (08:41)
[2017-07-10] MEDS: metoprolol tartrate 12.5mg (1/2 tablet) PO SCH ×2 (08:41→19:35)
[2017-07-10] MEDS: ascorbic acid 500mg tablet PO SCH (08:41)
[2017-07-10] MEDS: multivitamins, therapeutics tablet PO SCH (08:41)
[2017-07-10] MEDS: potassium Cl 20 mEq SR tablet PO SCH (09:00)
[2017-07-10] MEDS: insulin Lispro (HumaLOG) vial - multi-dose SQ SCH ×2 (09:53→14:03)
[2017-07-10] MEDS ORDERED: ATOR20TA PO (14:33)
[2017-07-10] MEDS: LACTOSE-FREE FOOD 237ML (BOOST) PO SCH (18:00)
[2017-07-10] MEDS: magnesium Cl slow-release 64mg tablet PO SCH (20:00)
[2017-07-10] MEDS: insulin glargine (Lantus) pen - multi-dose SQ SCH (20:52)
[2017-07-11] VITALS (24 sets, daily range): BP systolic 94–132; BP diastolic 46–67
[2017-07-11] MEDS: mineral oil/petrolatum ophthal oint EACHEYE SCH ×4 (01:10→20:00)
[2017-07-11] MEDS: metoclopramide 5 mg/ml inj IV SCH ×4 (01:10→20:00)
[2017-07-11 05:22] LABS: BASOPHILS % (AUTO) 0.3 % (0-1); EOSINOPHILS # (AUTO) 0.1 X10'3 (0-0.9); EOSINOPHILS % (AUTO) 1.6 % (0-6); HEMATOCRIT 24.4 % (42.0-52.0); HEMOGLOBIN 8.2 g/dl (14.0-17.9); LYMPHOCYTES # (AUTO) 0.7 X10'3 (1.1-4.8); LYMPHOCYTES % (AUTO) 9.6 % (21-51); MEAN CORPUSCULAR HEMOGLOBIN 31.9 PG (27.0-31.0); MEAN CORPUSCULAR HGB CONC 33.5 % (33.0-36.5); MEAN CORPUSCULAR VOLUME 95.4 FL (78-98); MEAN PLATELET VOLUME 7.7 FL (7.4-10.4); MONOCYTES # (AUTO) 0.4 X10'3 (0-0.9); MONOCYTES % (AUTO) 6.3 % (2-12); NEUTROPHILS # (AUTO) 5.9 X10'3 (1.8-7.7); NEUTROPHILS % (AUTO) 82.2 % (42-75); PLATELET COUNT 265 X10'3 (140-440); RED BLOOD COUNT 2.56 X10'6 (4.70-6.10); WHITE BLOOD COUNT 7.1 X10'3 (4.5-11.0)
[2017-07-11 05:50] LABS: ANION GAP 11 (8-16); BLOOD UREA NITROGEN 18 MG/DL (7-18); BUN/CREATININE RATIO 21.2 (5.4-32.0); CALCIUM 7.3 MG/DL (8.5-10.1); CHLORIDE 102 MMOL/L (99-107); CREATININE 0.85 MG/DL (0.60-1.10); GLUCOSE 146 MG/DL (70-104); MAGNESIUM 1.7 MG/DL (1.5-2.4); POTASSIUM 3.3 MMOL/L (3.5-5.1); SODIUM 137 MMOL/L (135-145); TOTAL CARBON DIOXIDE 24.2 MMOL/L (24-32); eGFR 87 ML/MIN
[2017-07-11] MEDS: K and/or MAG REPLACEMENT MC SCH (07:29)
[2017-07-11] MEDS: aspirin 325mg tablet PO SCH (07:42)
[2017-07-11] MEDS: fenofibrate 48mg tablet PO SCH (07:43)
[2017-07-11] MEDS: multivitamins, therapeutics tablet PO SCH (07:43)
[2017-07-11] MEDS: atorvastatin 10mg tablet PO SCH (07:43)
[2017-07-11] MEDS: furosemide 40mg tablet PO SCH ×2 (07:43→20:59)
[2017-07-11] MEDS: potassium Cl 20 mEq SR tablet PO SCH ×2 (07:43→20:59)
[2017-07-11] MEDS: magnesium Cl slow-release 64mg tablet PO SCH ×2 (07:43→20:59)
[2017-07-11] MEDS: metoprolol tartrate 12.5mg (1/2 tablet) PO SCH ×2 (07:43→20:59)
[2017-07-11] MEDS: pantoprazole 40mg Tablet.DR PO SCH (07:43)
[2017-07-11] MEDS: magnesium hydroxide 30ml (MOM) UD suspension PO SCH ×2 (07:44→19:22)
[2017-07-11] MEDS: docusate sod 100mg capsule PO SCH ×2 (07:44→19:21)
[2017-07-11] MEDS: ascorbic acid 500mg tablet PO SCH (07:47)
[2017-07-11] MEDS: methylnaltrexone br 12mg/0.6ml inj***SubQ only SQ SCH (07:48)
[2017-07-11] MEDS: LACTOSE-FREE FOOD 237ML (BOOST) PO SCH ×3 (08:00→18:42)
[2017-07-11] MEDS: Protein Shake (high protein) 240ml (8oz) cup PO SCH ×3 (08:00→18:00)
[2017-07-11] MEDS: potassium Cl 20 mEq SR tablet PO PRN ×2 (11:53→16:28)
[2017-07-11] MEDS: insulin Lispro (HumaLOG) vial - multi-dose SQ SCH ×2 (13:24→19:16)
[2017-07-11] MEDS: insulin glargine (Lantus) pen - multi-dose SQ SCH (21:00)
[2017-07-11] MEDS ORDERED: tamsulosin 0.4mg capsule PO SCH (21:00)
[2017-07-12] VITALS (24 sets, daily range): BP systolic 91–128; BP diastolic 43–76
[2017-07-12] MEDS: metoclopramide 5 mg/ml inj IV SCH ×4 (02:00→19:58)
[2017-07-12] MEDS: mineral oil/petrolatum ophthal oint EACHEYE SCH ×4 (02:00→20:00)
[2017-07-12 05:22] LABS: BASOPHILS % (AUTO) 0.2 % (0-1); EOSINOPHILS # (AUTO) 0.1 X10'3 (0-0.9); EOSINOPHILS % (AUTO) 0.9 % (0-6); HEMATOCRIT 26.7 % (42.0-52.0); HEMOGLOBIN 8.9 g/dl (14.0-17.9); LYMPHOCYTES # (AUTO) 0.9 X10'3 (1.1-4.8); LYMPHOCYTES % (AUTO) 10.2 % (21-51); MEAN CORPUSCULAR HEMOGLOBIN 32.1 PG (27.0-31.0); MEAN CORPUSCULAR HGB CONC 33.5 % (33.0-36.5); MEAN CORPUSCULAR VOLUME 95.8 FL (78-98); MEAN PLATELET VOLUME 7.9 FL (7.4-10.4); MONOCYTES # (AUTO) 0.6 X10'3 (0-0.9); MONOCYTES % (AUTO) 6.8 % (2-12); NEUTROPHILS # (AUTO) 7.2 X10'3 (1.8-7.7); NEUTROPHILS % (AUTO) 81.9 % (42-75); PLATELET COUNT 297 X10'3 (140-440); RED BLOOD COUNT 2.78 X10'6 (4.70-6.10); WHITE BLOOD COUNT 8.8 X10'3 (4.5-11.0)
[2017-07-12 05:45] LABS: ALBUMIN 2.2 G/DL (3.4-5.0); ANION GAP 10 (8-16); BLOOD UREA NITROGEN 13 MG/DL (7-18); BUN/CREATININE RATIO 15.1 (5.4-32.0); CHLORIDE 106 MMOL/L (99-107); CREATININE 0.86 MG/DL (0.60-1.10); GLUCOSE 178 MG/DL (70-104); MAGNESIUM 1.7 MG/DL (1.5-2.4); PHOSPHORUS 2.5 MG/DL (2.3-4.5); POTASSIUM 3.9 MMOL/L (3.5-5.1); PREALBUMIN 12.6 MG/DL (19-36); SODIUM 139 MMOL/L (135-145); TOTAL CARBON DIOXIDE 22.7 MMOL/L (24-32); eGFR 86 ML/MIN
[2017-07-12] MEDS: K and/or MAG REPLACEMENT MC SCH (06:35)
[2017-07-12] MEDS: Protein Shake (high protein) 240ml (8oz) cup PO SCH ×3 (08:00→18:00)
[2017-07-12] MEDS: magnesium hydroxide 30ml (MOM) UD suspension PO SCH ×2 (08:00→19:59)
[2017-07-12] MEDS: docusate sod 100mg capsule PO SCH ×2 (08:00→19:59)
[2017-07-12] MEDS: LACTOSE-FREE FOOD 237ML (BOOST) PO SCH ×3 (08:01→19:12)
[2017-07-12] MEDS: multivitamins, therapeutics tablet PO SCH (08:02)
[2017-07-12] MEDS: furosemide 40mg tablet PO SCH ×2 (08:02→20:19)
[2017-07-12] MEDS: fenofibrate 48mg tablet PO SCH (08:02)
[2017-07-12] MEDS: potassium Cl 20 mEq SR tablet PO SCH ×2 (08:02→20:00)
[2017-07-12] MEDS: atorvastatin 10mg tablet PO SCH (08:02)
[2017-07-12] MEDS: aspirin 325mg tablet PO SCH (08:02)
[2017-07-12] MEDS: metoprolol tartrate 12.5mg (1/2 tablet) PO SCH ×2 (08:02→20:19)
[2017-07-12] MEDS: pantoprazole 40mg Tablet.DR PO SCH (08:02)
[2017-07-12] MEDS: ascorbic acid 500mg tablet PO SCH (08:02)
[2017-07-12] MEDS: magnesium Cl slow-release 64mg tablet PO SCH ×2 (08:03→20:19)
[2017-07-12] MEDS: insulin Lispro (HumaLOG) vial - multi-dose SQ SCH ×3 (08:28→19:16)
[2017-07-12] MEDS: insulin glargine (Lantus) pen - multi-dose SQ SCH (20:22)
[2017-07-13] VITALS (24 sets, daily range): BP systolic 79–119; BP diastolic 45–69
[2017-07-13] MEDS: metoclopramide 5 mg/ml inj IV SCH ×4 (02:00→19:59)
[2017-07-13] MEDS: LACTOSE-FREE FOOD 237ML (BOOST) PO SCH ×3 (08:00→18:00)
[2017-07-13] MEDS: K and/or MAG REPLACEMENT MC SCH (08:00)
[2017-07-13] MEDS: Protein Shake (high protein) 240ml (8oz) cup PO SCH ×3 (08:00→18:00)
[2017-07-13] MEDS: magnesium hydroxide 30ml (MOM) UD suspension PO SCH ×2 (08:00→20:00)
[2017-07-13] MEDS: methylnaltrexone br 12mg/0.6ml inj***SubQ only SQ SCH (08:42)
[2017-07-13] MEDS: potassium Cl 20 mEq SR tablet PO SCH ×2 (08:43→20:00)
[2017-07-13] MEDS: fenofibrate 48mg tablet PO SCH (08:43)
[2017-07-13] MEDS: docusate sod 100mg capsule PO SCH ×2 (08:43→20:00)
[2017-07-13] MEDS: furosemide 40mg tablet PO SCH (08:43)
[2017-07-13] MEDS: HYDROcodone/acetaminophen 10/325mg tab PO PRN (08:44)
[2017-07-13] MEDS: aspirin 325mg tablet PO SCH (08:44)
[2017-07-13] MEDS: ascorbic acid 500mg tablet PO SCH (08:44)
[2017-07-13] MEDS: pantoprazole 40mg Tablet.DR PO SCH (08:45)
[2017-07-13] MEDS: atorvastatin 10mg tablet PO SCH (08:45)
[2017-07-13] MEDS: multivitamins, therapeutics tablet PO SCH (08:45)
[2017-07-13] MEDS: metoprolol tartrate 12.5mg (1/2 tablet) PO SCH ×2 (08:45→19:59)
[2017-07-13] MEDS: magnesium Cl slow-release 64mg tablet PO SCH ×2 (08:45→19:58)
[2017-07-13] MEDS: insulin Lispro (HumaLOG) vial - multi-dose SQ SCH ×2 (09:01→12:53)
[2017-07-13] MEDS ORDERED: dextrose ORAL solution 15 GM/59 ML bottle PO PRN ×2 (16:05)
[2017-07-13] MEDS: insulin glargine (Lantus) pen - multi-dose SQ SCH (21:08)
[2017-07-14] VITALS (18 sets, daily range): BP systolic 90–115; BP diastolic 48–67
[2017-07-14] MEDS: metoclopramide 5 mg/ml inj IV SCH ×4 (03:11→21:44)
[2017-07-14] MEDS: Protein Shake (high protein) 240ml (8oz) cup PO SCH ×3 (08:00→18:00)
[2017-07-14] MEDS ORDERED: magnesium 2GM in 50ml NS 50 ML IV PRN (09:05)
[2017-07-14] MEDS ORDERED: magnesium 4gm in 100ml NS 100 ML IV PRN (09:05)
[2017-07-14] MEDS ORDERED: potassium Cl 20 mEq SR tablet PO PRN ×2 (09:05)
[2017-07-14] MEDS ORDERED: magnesium Cl slow-release 64mg tablet PO PRN (09:05)
[2017-07-14] MEDS ORDERED: potassium Cl 40MEQ/NS 500ml 500 ML IV PRN ×2 (09:05)
[2017-07-14] MEDS: LACTOSE-FREE FOOD 237ML (BOOST) PO SCH ×3 (09:23→18:00)
[2017-07-14] MEDS: magnesium hydroxide 30ml (MOM) UD suspension PO SCH ×2 (09:36→20:00)
[2017-07-14] MEDS: multivitamins, therapeutics tablet PO SCH (09:43)
[2017-07-14] MEDS: pantoprazole 40mg Tablet.DR PO SCH (09:43)
[2017-07-14] MEDS: ascorbic acid 500mg tablet PO SCH (09:44)
[2017-07-14] MEDS: docusate sod 100mg capsule PO SCH ×2 (09:44→21:45)
[2017-07-14] MEDS: aspirin 325mg tablet PO SCH (09:45)
[2017-07-14] MEDS: fenofibrate 48mg tablet PO SCH (09:45)
[2017-07-14] MEDS: metoprolol tartrate 25mg tablet PO SCH ×2 (11:18→21:44)
[2017-07-14] MEDS: potassium Cl 20 mEq SR tablet PO SCH (20:00)
[2017-07-14] MEDS: metoprolol tartrate 12.5mg (1/2 tablet) PO SCH (20:00)
[2017-07-14] MEDS ORDERED: atorvastatin 20mg tablet PO SCH (21:00)
[2017-07-14] MEDS: magnesium Cl slow-release 64mg tablet PO SCH (21:44)
[2017-07-15] MEDS: metoclopramide 5 mg/ml inj IV SCH ×2 (02:16→07:47)
[2017-07-15 03:00] VITALS: BP 108/53
[2017-07-15 05:21] LABS: BASOPHILS % (AUTO) 0.3 % (0-1); EOSINOPHILS # (AUTO) 0.1 X10'3 (0-0.9); EOSINOPHILS % (AUTO) 1.5 % (0-6); HEMATOCRIT 26.4 % (42.0-52.0); HEMOGLOBIN 8.9 g/dl (14.0-17.9); LYMPHOCYTES # (AUTO) 0.9 X10'3 (1.1-4.8); LYMPHOCYTES % (AUTO) 16.3 % (21-51); MEAN CORPUSCULAR HEMOGLOBIN 31.7 PG (27.0-31.0); MEAN CORPUSCULAR HGB CONC 33.6 % (33.0-36.5); MEAN CORPUSCULAR VOLUME 94.3 FL (78-98); MONOCYTES # (AUTO) 0.7 X10'3 (0-0.9); MONOCYTES % (AUTO) 12.6 % (2-12); NEUTROPHILS # (AUTO) 3.8 X10'3 (1.8-7.7); NEUTROPHILS % (AUTO) 69.3 % (42-75); PLATELET COUNT 358 X10'3 (140-440); RED CELL DISTRIBUTION WIDTH 15.3 % (11.5-14.5); WHITE BLOOD COUNT 5.5 X10'3 (4.5-11.0)
[2017-07-15 05:27] LABS: ALBUMIN 2.1 G/DL (3.4-5.0); ANION GAP 9 (8-16); BLOOD UREA NITROGEN 18 MG/DL (7-18); BUN/CREATININE RATIO 20.5 (5.4-32.0); CALCIUM 7.2 MG/DL (8.5-10.1); CHLORIDE 100 MMOL/L (99-107); CREATININE 0.88 MG/DL (0.60-1.10); GLUCOSE 171 MG/DL (70-104); MAGNESIUM 1.6 MG/DL (1.5-2.4); POTASSIUM 3.6 MMOL/L (3.5-5.1); SODIUM 133 MMOL/L (135-145); TOTAL CARBON DIOXIDE 24.3 MMOL/L (24-32); eGFR 83 ML/MIN
[2017-07-15 06:00] VITALS: BP 111/62
[2017-07-15] MEDS: magnesium hydroxide 30ml (MOM) UD suspension PO SCH (07:39)
[2017-07-15] MEDS: potassium Cl 20 mEq SR tablet PO SCH (07:39)
[2017-07-15] MEDS: multivitamins, therapeutics tablet PO SCH (07:41)
[2017-07-15] MEDS: magnesium Cl slow-release 64mg tablet PO SCH (07:41)
[2017-07-15] MEDS: pantoprazole 40mg Tablet.DR PO SCH (07:41)
[2017-07-15] MEDS: metoprolol tartrate 12.5mg (1/2 tablet) PO SCH (07:43)
[2017-07-15] MEDS: aspirin 325mg tablet PO SCH (07:44)
[2017-07-15] MEDS: ascorbic acid 500mg tablet PO SCH (07:44)
[2017-07-15] MEDS: docusate sod 100mg capsule PO SCH (07:45)
[2017-07-15] MEDS: LACTOSE-FREE FOOD 237ML (BOOST) PO SCH (07:45)
[2017-07-15] MEDS: methylnaltrexone br 12mg/0.6ml inj***SubQ only SQ SCH (07:46)
[2017-07-15] MEDS: Protein Shake (high protein) 240ml (8oz) cup PO SCH (07:46)
[2017-07-15] MEDS: fenofibrate 48mg tablet PO SCH (07:47)
[2017-07-15] MEDS ORDERED: K and/or MAG REPLACEMENT MC SCH (08:00)
[2017-07-15] MEDS ORDERED: ASPI-1 PO (10:48)
[2017-07-15] MEDS ORDERED: METO25TA6 PO (10:48)
[2017-07-15 11:00] VITALS: BP 102/50
== END 2017-07-15 12:25 | disposition home health service (06) | DRG 233 ==
LOC: ER 00:09 → ED HOLD 02:44 → PCU 3S 07:30 → PACU 14:20 → OBSVTOIN 15:01 → ICU 2S 19:21 → PCU 3S 07-14 14:00
PROVIDERS: ADMIT Internal Medicine; ATTEND Internal Medicine
PROC: 021209W Bypass Coronary Artery, Three Arteries from Aorta with Autologous Venous Tissue, Open Approach (ICD-10-PCS; 2017-07-01)
PROC: 5A1945Z Respiratory Ventilation, 24-96 Consecutive Hours (ICD-10-PCS; 2017-07-01)
PROC: 0BH17EZ Insertion of Endotracheal Airway into Trachea, Via Natural or Artificial Opening (ICD-10-PCS; 2017-07-01)
PROC: 4A023N7 Measurement of Cardiac Sampling and Pressure, Left Heart, Percutaneous Approach (ICD-10-PCS; 2017-07-01)
PROC: 06BP4ZZ Excision of Right Saphenous Vein, Percutaneous Endoscopic Approach (ICD-10-PCS; 2017-07-01)
PROC: B24BZZ4 Ultrasonography of Heart with Aorta, Transesophageal (ICD-10-PCS; 2017-07-01)
PROC: 5A1221Z Performance of Cardiac Output, Continuous (ICD-10-PCS; 2017-07-01)
PROC: 05HM33Z Insertion of Infusion Device into Right Internal Jugular Vein, Percutaneous Approach (ICD-10-PCS; 2017-07-01)
PROC: B543ZZA Ultrasonography of Right Jugular Veins, Guidance (ICD-10-PCS; 2017-07-01)
PROC: 4A133B3 Monitoring of Arterial Pressure, Pulmonary, Percutaneous Approach (ICD-10-PCS; 2017-07-01)
PROC: 02HQ32Z Insertion of Monitoring Device into Right Pulmonary Artery, Percutaneous Approach (ICD-10-PCS; 2017-07-01)
PROC: B24BZZ4 Ultrasonography of Heart with Aorta, Transesophageal (ICD-10-PCS; 2017-07-01)
PROC: 02100Z9 Bypass Coronary Artery, One Artery from Left Internal Mammary, Open Approach (ICD-10-PCS; principal; 2017-07-01 14:17)
PROC: 4A023N7 Measurement of Cardiac Sampling and Pressure, Left Heart, Percutaneous Approach (ICD-10-PCS; 2017-07-06)
PROC: B2111ZZ Fluoroscopy of Multiple Coronary Arteries using Low Osmolar Contrast (ICD-10-PCS; 2017-07-06)
PROC: B2151ZZ Fluoroscopy of Left Heart using Low Osmolar Contrast (ICD-10-PCS; 2017-07-06)
PROC: B2131ZZ Fluoroscopy of Multiple Coronary Artery Bypass Grafts using Low Osmolar Contrast (ICD-10-PCS; 2017-07-06)
PROC: B41F1ZZ Fluoroscopy of Right Lower Extremity Arteries using Low Osmolar Contrast (ICD-10-PCS; 2017-07-06)
DX: I21.4 Non-ST elevation (NSTEMI) myocardial infarction (principal); J96.00 Acute respiratory failure, unspecified whether with hypoxia or hypercapnia; K56.609 Unspecified intestinal obstruction, unspecified as to partial versus complete obstruction; J90 Pleural effusion, not elsewhere classified; K56.7 Ileus, unspecified; I27.20 Pulmonary hypertension, unspecified; I25.110 Atherosclerotic heart disease of native coronary artery with unstable angina pectoris; E78.00 Pure hypercholesterolemia, unspecified; E78.5 Hyperlipidemia, unspecified; G89.29 Other chronic pain; I10 Essential (primary) hypertension; M54.9 Dorsalgia, unspecified; I34.0 Nonrheumatic mitral (valve) insufficiency; I70.0 Atherosclerosis of aorta; Z85.46 Personal history of malignant neoplasm of prostate; Z86.73 Personal history of transient ischemic attack (TIA), and cerebral infarction without residual deficits; Z87.891 Personal history of nicotine dependence; Z95.1 Presence of aortocoronary bypass graft; Z90.49 Acquired absence of other specified parts of digestive tract; Z79.899 Other long term (current) drug therapy
CPT/HCPCS: 0232T; 93312; 93325; 93458; 93459; 96365; 96375; 96376; 99285; 36415; 36600; 71045; 74018; 74176; 74177; 80048; 80053; 80061; 82330; 82435; 82803; 82947; 82948; 83036; 83605; 83735; 83880; 84100; 84132; 84134; 84145; 84295; 84439; 84443; 84484; 85018; 85025; 85347; 85379; 85384; 85610; 85730; 86885; 86900; 86901; 86920; 87070; 93005; 93880; 93971; 94002; 94003; 94060; 94640; 94668; 94760; 97110; 97116; 97162; 97530; 99152; 99153; A4620; A6213; A6222; A6255; A6257; A6258; A6402; A6449; A7000; A7048; C1751; C1758; C1769; C9113; G0378; J0690; J1250; J1265; J1644; J1650; J1815; J1940; J2001; J2060; J2250; J2270; J2370; J2405; J2440; J2704; J2720; J2765; J3010; J3370; J3475; J3480; J3490; J7030; J7120; Q9963; Q9967

== ENCOUNTER 2017-12-05 05:37 | Inpatient (IN) | payer MEDICARE ==
[2017-12-03 15:39] LABS: BASOPHILS % (AUTO) 0.5 % (0-1); EOSINOPHILS # (AUTO) 0.2 X10'3 (0-0.9); EOSINOPHILS % (AUTO) 3.3 % (0-6); LYMPHOCYTES # (AUTO) 2.8 X10'3 (1.1-4.8); LYMPHOCYTES % (AUTO) 36.6 % (21-51); MEAN CORPUSCULAR HEMOGLOBIN 31.5 PG (27.0-31.0); MEAN CORPUSCULAR HGB CONC 33.3 % (33.0-36.5); MEAN CORPUSCULAR VOLUME 94.7 FL (78-98); MONOCYTES # (AUTO) 0.8 X10'3 (0-0.9); MONOCYTES % (AUTO) 11.1 % (2-12); NEUTROPHILS # (AUTO) 3.7 X10'3 (1.8-7.7); NEUTROPHILS % (AUTO) 48.5 % (42-75); PRE OP HEMATOCRIT 39.9 % (42.0-52.0); PRE OP HEMOGLOBIN 13.3 g/dL (14.0-17.9); PRE OP PLATELET COUNT 307 X10'3 (140-440); RED BLOOD COUNT 4.21 X10'6 (4.70-6.10); RED CELL DISTRIBUTION WIDTH 16.1 % (11.5-14.5)
[2017-12-03 15:46] LABS: CLARITY,URINE CLEAR (Clear); COLOR,URINE STRAW (Yellow); GLUCOSE, URINE NEGATIVE (Neg); KETONES,URINE NEGATIVE (Neg); LEUKOCYTE ESTERASE ,URINE NEGATIVE (Neg); NITRITES, URINE NEGATIVE (Neg); OCCULT BLOOD,URINE NEGATIVE (Neg); PROTEIN,URINE NEGATIVE (Neg); UROBILINOGEN,URINE 0.2 E.U/dL (0.2-1.0)
[2017-12-03 15:47] LABS: UA COLLECTION TYPE CLN CATCH MIDSTREAM
[2017-12-03 15:53] LABS: HEMOGLOBIN A1C 6.8 % (4.5-6.2); PRE OP PROTIME 9.9 SECONDS (9.0-12.0)
[2017-12-03 15:54] LABS: ALBUMIN 3.9 G/DL (3.4-5.0); ALKALINE PHOSPHATASE 50 IU/L (46-116); BLOOD UREA NITROGEN 20 MG/DL (7-18); BUN/CREATININE RATIO 21.5 (5.4-32.0); CALCIUM 9.7 MG/DL (8.5-10.1); CHLORIDE 100 MMOL/L (99-107); CREATININE 0.93 MG/DL (0.60-1.10); PRE OP ALT 27 U/L (30-65); PRE OP ANION GAP 10 (8-16); PRE OP AST 20 U/L (10-37); PRE OP BILIRUB, TOTAL 0.3 MG/DL (0.0-1.0); PRE OP GLUCOSE 101 MG/DL (70-104); PRE OP POTASSIUM 4.3 MMOL/L (3.4-5.1); PRE OP SODIUM 136 MMOL/L (135-145); TOTAL PROTEIN 7.9 G/DL (6.4-8.2); eGFR 78 ML/MIN
[2017-12-05] VITALS (32 sets, daily range): BP systolic 102–176; BP diastolic 49–81
[~2017-12-05] VITALS: Ht 157.5 cm; Wt 82.1 kg
[~2017-12-05 05:37] MED LIST changes: +ASPI81TA52 PO; +ATOR40TA PO; -AZIT250T3 PO; +CYAN-19 PO; +DOCUMENT DATE & TIME OF BETA-BLOCKER PO ONE; -GABA100C PO; +LORA10TA7 PO; +METO25TA6 PO; +cefazolin/dext.iso 2gm/100 ML IV ONE; +famotidine 20mg tablet PO ONE
[2017-12-05] MEDS ORDERED: LIDOcaine 1% (10mg/ml) 2ml vial ONE (06:04)
[2017-12-05] MEDS ORDERED: nitroGLYCERIN-Tridil 50MG/D5W 250 ML IV PRN ×2 (06:15→06:22)
[2017-12-05] MEDS ORDERED: phenylephrine inj 10 MG in normal saline 250ml IV soln 250 ML IV PRN ×2 (06:15→06:22)
[2017-12-05] MEDS: ringers solution, lacted 1,000 ML IV SCH ×2 (06:22→16:28)
[2017-12-05] MEDS ORDERED: LIDOcaine 1% 30ml preserv. free vial ONE (06:55)
[2017-12-05] MEDS ORDERED: heparin 10,000 units/1 ML INJ ONE (06:55)
[2017-12-05] MEDS ORDERED: fentaNYL /PF 50mcg/ml 5ml ampule ONE (08:11)
[2017-12-05] MEDS ORDERED: midazolam 2 mg/2 ml injection ONE (08:11)
[2017-12-05] MEDS ORDERED: nitroGLYCERIN in D5W 50mg/250ml (Tridil) infusion IV ONE (08:12)
[2017-12-05] MEDS ORDERED: glycopyrrolate 0.2mg/ml inj ONE (08:12)
[2017-12-05] MEDS ORDERED: neostigmine methylsulfate 1 MG/ML 10ml vial ONE (08:12)
[2017-12-05] MEDS ORDERED: sevoflurane 250ml liquid IH ONE (08:12)
[2017-12-05] MEDS ORDERED: dexamethasone sod phosphate 10mg/ml inj ONE (08:12)
[2017-12-05] MEDS ORDERED: LIDOcaine 2% (20mg/ml) 5ml vial ONE (08:13)
[2017-12-05] MEDS ORDERED: propofol inj 20 ML IV ONE (08:13)
[2017-12-05] MEDS ORDERED: rocuronium 10mg/ml inj IV ONE (08:14)
[2017-12-05] MEDS ORDERED: heparin 1,000unit/ml 10ml vial 10 ML ONE (08:38)
[2017-12-05] MEDS ORDERED: ringers solution, lacted 1,000 ML IV SCH (09:01)
[2017-12-05] MEDS ORDERED: proCHLORperazine 10 MG/2 ml inj IV PRN (09:05)
[2017-12-05] MEDS ORDERED: meperidine/PF 25mg/ml syringe IV PRN ×2 (09:05)
[2017-12-05] MEDS ORDERED: morphine 4 MG/ML inj SYRINge IV PRN ×2 (09:05)
[2017-12-05] MEDS ORDERED: ondansetron/PF 4mg/2ml inj IV PRN ×2 (09:05→10:50)
[2017-12-05] MEDS ORDERED: ondansetron/PF 4mg/2ml inj ONE (09:56)
[2017-12-05] MEDS: meperidine/PF 25mg/ml syringe IV PRN ×3 (10:26→12:33)
[2017-12-05] MEDS ORDERED: albuterol 2.5 MG/3 ML nebule NEB ONE (10:40)
[2017-12-05] MEDS: HYDROcodone/acetaminophen 5mg/325mg tablet PO PRN ×2 (14:08→19:26)
[2017-12-05] MEDS: aspirin 81mg tablet.DR PO SCH (16:17)
[2017-12-05] MEDS: metFORMIN 500mg tablet PO SCH (18:05)
[2017-12-05] MEDS: calcium carbonate/vitamin D3 tablet PO SCH (19:25)
[2017-12-05] MEDS: metoprolol tartrate 25mg tablet PO SCH (19:26)
[2017-12-05] MEDS: ascorbic acid 500mg tablet PO SCH (19:26)
[2017-12-06] VITALS (15 sets, daily range): BP systolic 127–173; BP diastolic 58–93
[2017-12-06 03:48] LABS: BASOPHILS % (AUTO) 0.3 % (0-1); EOSINOPHILS # (AUTO) 0.2 X10'3 (0-0.9); EOSINOPHILS % (AUTO) 2.5 % (0-6); HEMATOCRIT 33.6 % (42.0-52.0); HEMOGLOBIN 11.3 g/dl (14.0-17.9); LYMPHOCYTES # (AUTO) 1.8 X10'3 (1.1-4.8); LYMPHOCYTES % (AUTO) 27.1 % (21-51); MEAN CORPUSCULAR HEMOGLOBIN 31.7 PG (27.0-31.0); MEAN CORPUSCULAR HGB CONC 33.7 % (33.0-36.5); MEAN CORPUSCULAR VOLUME 94.3 FL (78-98); MEAN PLATELET VOLUME 7.2 FL (7.4-10.4); MONOCYTES # (AUTO) 0.6 X10'3 (0-0.9); MONOCYTES % (AUTO) 8.2 % (2-12); NEUTROPHILS # (AUTO) 4.1 X10'3 (1.8-7.7); NEUTROPHILS % (AUTO) 61.9 % (42-75); PLATELET COUNT 246 X10'3 (140-440); RED BLOOD COUNT 3.56 X10'6 (4.70-6.10); RED CELL DISTRIBUTION WIDTH 15.6 % (11.5-14.5); WHITE BLOOD COUNT 6.7 X10'3 (4.5-11.0)
[2017-12-06 04:09] LABS: ALBUMIN 3.2 G/DL (3.4-5.0); ANION GAP 10 (8-16); BLOOD UREA NITROGEN 13 MG/DL (7-18); BUN/CREATININE RATIO 13.8 (5.4-32.0); CHLORIDE 99 MMOL/L (99-107); CREATININE 0.94 MG/DL (0.60-1.10); GLUCOSE 126 MG/DL (70-104); POTASSIUM 4.4 MMOL/L (3.5-5.1); SODIUM 133 MMOL/L (135-145); TOTAL CARBON DIOXIDE 23.6 MMOL/L (24-32); eGFR 77 ML/MIN
[2017-12-06] MEDS: HYDROcodone/acetaminophen 5mg/325mg tablet PO PRN ×2 (04:10→12:42)
[2017-12-06] MEDS ORDERED: loratadine 10mg tablet PO SCH (08:00)
[2017-12-06] MEDS ORDERED: enoxaparin 40mg/0.4ml syringe SQ SCH (08:00)
[2017-12-06] MEDS ORDERED: multivitamins, therapeutics tablet PO SCH (08:00)
[2017-12-06] MEDS ORDERED: fenofibrate 145mg tablet PO SCH (08:00)
[2017-12-06] MEDS ORDERED: glimepiride 1 MG tablet PO SCH (08:00)
[2017-12-06] MEDS ORDERED: atorvastatin 20mg tablet PO SCH (08:00)
[2017-12-06] MEDS: metoprolol tartrate 25mg tablet PO SCH (08:34)
[2017-12-06] MEDS: calcium carbonate/vitamin D3 tablet PO SCH (08:34)
[2017-12-06] MEDS: ascorbic acid 500mg tablet PO SCH (08:35)
[2017-12-06] MEDS: aspirin 81mg tablet.DR PO SCH (08:35)
[2017-12-06] MEDS: metFORMIN 500mg tablet PO SCH (08:42)
[2017-12-06] MEDS ORDERED: cyanocobalamin 500mcg tablet PO SCH (14:20)
== END 2017-12-06 17:13 | disposition home or self-care (01) | DRG 39 ==
LOC: PAS 05:37 → EDSTATUS 08:15 → CICU 2S 10:49
PROVIDERS: ADMIT Surgery; ATTEND Surgery
PROC: 03CM0ZZ Extirpation of Matter from Right External Carotid Artery, Open Approach (ICD-10-PCS; 2017-12-05)
PROC: 03CK0ZZ Extirpation of Matter from Right Internal Carotid Artery, Open Approach (ICD-10-PCS; 2017-12-05)
PROC: 03UH0KZ Supplement Right Common Carotid Artery with Nonautologous Tissue Substitute, Open Approach (ICD-10-PCS; 2017-12-05)
PROC: 03UK0KZ Supplement Right Internal Carotid Artery with Nonautologous Tissue Substitute, Open Approach (ICD-10-PCS; 2017-12-05)
PROC: 03UM0KZ Supplement Right External Carotid Artery with Nonautologous Tissue Substitute, Open Approach (ICD-10-PCS; 2017-12-05)
PROC: 0JB10ZX Excision of Face Subcutaneous Tissue and Fascia, Open Approach, Diagnostic (ICD-10-PCS; 2017-12-05)
PROC: 03CH0ZZ Extirpation of Matter from Right Common Carotid Artery, Open Approach (ICD-10-PCS; principal; 2017-12-05 08:12)
DX: I65.21 Occlusion and stenosis of right carotid artery (principal); E78.5 Hyperlipidemia, unspecified; I10 Essential (primary) hypertension; L98.9 Disorder of the skin and subcutaneous tissue, unspecified; M19.90 Unspecified osteoarthritis, unspecified site; I25.10 Atherosclerotic heart disease of native coronary artery without angina pectoris; E11.51 Type 2 diabetes mellitus with diabetic peripheral angiopathy without gangrene; Z95.1 Presence of aortocoronary bypass graft; Z90.49 Acquired absence of other specified parts of digestive tract; Z79.899 Other long term (current) drug therapy; Z79.84 Long term (current) use of oral hypoglycemic drugs; Z87.891 Personal history of nicotine dependence; Z82.49 Family history of ischemic heart disease and other diseases of the circulatory system
CPT/HCPCS: 36415; 71046; 80048; 80053; 81003; 82948; 83036; 85025; 85610; 85730; 86885; 86900; 86901; 86920; 87070; 88305; 94640; 95813; 95816; A6258; A7000; C1768; J0690; J1100; J1644; J1650; J2001; J2175; J2250; J2370; J2405; J2704; J2710; J3010; J3420; J3490; J7030; J7120

== ENCOUNTER 2021-04-26 15:02 | Day surgery (SDC) | payer MEDICARE ==
[2021-04-19 10:24] LABS: BASOPHILS % (AUTO) 0.4 % (0-1); EOSINOPHILS # (AUTO) 0.1 X10'3 (0-0.9); EOSINOPHILS % (AUTO) 0.7 % (0-6); LYMPHOCYTES # (AUTO) 1.7 X10'3 (1.1-4.8); LYMPHOCYTES % (AUTO) 23.8 % (21-51); MEAN CORPUSCULAR HEMOGLOBIN 31.5 PG (27.0-31.0); MEAN CORPUSCULAR HGB CONC 33.2 g/dL (33.0-36.5); MEAN CORPUSCULAR VOLUME 94.8 FL (78-98); MEAN PLATELET VOLUME 7.3 FL (7.4-10.4); MONOCYTES # (AUTO) 0.6 X10'3 (0-0.9); MONOCYTES % (AUTO) 8.3 % (2-12); NEUTROPHILS # (AUTO) 4.7 X10'3 (1.8-7.7); NEUTROPHILS % (AUTO) 66.8 % (42-75); PLATELET COUNT 308 X10'3 (140-440); RED BLOOD COUNT 4.12 X10'6 (4.70-6.10); RED CELL DISTRIBUTION WIDTH 15.2 % (11.5-14.5)
[2021-04-19 10:32] LABS: ALBUMIN 3.6 G/DL (3.4-5.0); ANION GAP 6 (8-16); BLOOD UREA NITROGEN 23 MG/DL (7-18); BUN/CREATININE RATIO 23.5 (5.4-32.0); CALCIUM 9.3 MG/DL (8.5-10.1); CHLORIDE 102 MMOL/L (99-107); CREATININE 0.98 MG/DL (0.60-1.10); GLUCOSE 167 MG/DL (70-104); POTASSIUM 4.1 MMOL/L (3.5-5.1); SODIUM 135 MMOL/L (135-145); TOTAL CARBON DIOXIDE 27.3 MMOL/L (24-32); eGFR 73 ML/MIN
[2021-04-19 10:36] LABS: APTT 29 SECONDS (22-32)
[2021-04-26] VITALS (8 sets, daily range): BP systolic 106–147; BP diastolic 52–89
[~2021-04-26] VITALS: Ht 175.3 cm; Wt 73.7 kg
[~2021-04-26 15:02] MED LIST changes: +ASCO-10 PO; -ASCO125T PO; -CALC600T12 PO; -CYAN-19 PO; +CYAN-51 PO; -DOCUMENT DATE & TIME OF BETA-BLOCKER PO ONE; +FENO145T26 PO; -FENO48TA15 PO; -GLYB2.5T4 PO; +GLYB5TAB7 PO; +LACT1CAP26 PO; +LISI1TAB51 PO; -LORA10TA7 PO; +METF-438 PO; -METF500T PO; -METO25TA6 PO; +NITR0.4T51 SL; +SODI1TAB2 PO; -cefazolin/dext.iso 2gm/100 ML IV ONE; -famotidine 20mg tablet PO ONE
[2021-04-26] MEDS ORDERED: normal saline 1,000 ML IV SCH (15:20)
[2021-04-26] MEDS ORDERED: diphenhydrAMINE 25mg capsule PO PRN (15:20)
[2021-04-26] MEDS ORDERED: LORazepam 0.5 MG tablet PO PRN (15:20)
[2021-04-26] MEDS ORDERED: METO-395 PO (15:30)
[2021-04-26] MEDS ORDERED: ATOR20TA66 PO (15:30)
[2021-04-26] MEDS ORDERED: ASPI-1264 PO (15:31)
[2021-04-26] MEDS ORDERED: LISI1TAB51 PO (15:31)
[2021-04-26] MEDS ORDERED: ASPI-1071 PO (15:44)
[2021-04-26] MEDS ORDERED: iohexol 350MG/ML 100ml bottle IV ONE (17:23)
[2021-04-26] MEDS ORDERED: midazolam 1 mg/ML 2ml injection ONE (17:23)
[2021-04-26] MEDS ORDERED: LIDOcaine 1% (10mg/ml)w/preservative inj. 20ml MDV ONE (17:23)
[2021-04-26] MEDS ORDERED: fentaNYL/PF 50MCG/1 ML 2ML syringe ONE (17:23)
[2021-04-26] MEDS ORDERED: iohexol 350 MG/ML 50ML vial IV ONE (18:06)
[2021-04-26] MEDS ORDERED: HYDROcodone/acetaminophen 5mg/325mg tablet PO PRN (18:50)
[2021-04-26] MEDS ORDERED: HYDROcodone/acetaminophen 10/325mg tab PO PRN (18:50)
== END 2021-04-26 20:30 | disposition home or self-care (01) ==
LOC: SSTAY O 15:02
PROVIDERS: ATTEND Internal Medicine Interventional Cardiology
DX: R94.39 Abnormal result of other cardiovascular function study (principal); I25.810 Atherosclerosis of coronary artery bypass graft(s) without angina pectoris; E78.5 Hyperlipidemia, unspecified; E11.9 Type 2 diabetes mellitus without complications; I11.0 Hypertensive heart disease with heart failure; I50.9 Heart failure, unspecified; I65.29 Occlusion and stenosis of unspecified carotid artery; Z79.01 Long term (current) use of anticoagulants; Z95.0 Presence of cardiac pacemaker; Z79.899 Other long term (current) drug therapy; Z79.82 Long term (current) use of aspirin; Z87.891 Personal history of nicotine dependence; Z85.46 Personal history of malignant neoplasm of prostate
CPT/HCPCS: 36415; 80048; 85025; 85610; 85730; 93005; 93459; 99152; 99153; C1760; C1769; C1894; J1644; J2250; J3010; J3490; J7030; Q0163; Q9967; A4620; A6258

== ENCOUNTER 2023-06-21 22:20 | Inpatient (IN) | payer MEDICARE ==
[~2023-06-21] VITALS: Ht 175.3 cm; Wt 68.2 kg
[~2023-06-21 22:20] MED LIST changes: +ASPI-1071 PO; -ASPI81TA52 PO; +ATOR20TA66 PO; -ATOR40TA PO; +CYAN-104 PO; -CYAN-51 PO; -LACT1CAP26 PO; +METO-395 PO; -OMEG500C PO; -SODI1TAB2 PO
[2023-06-21 23:48] LABS: BASOPHILS % (AUTO) 0.3 % (0-1); EOSINOPHILS % (AUTO) 0.2 % (0-6); HEMATOCRIT 38.9 % (42.0-52.0); HEMOGLOBIN 13.4 g/dl (14.0-17.9); LYMPHOCYTES # (AUTO) 0.8 X10'3 (1.1-4.8); LYMPHOCYTES % (AUTO) 10.8 % (21-51); MEAN CORPUSCULAR HEMOGLOBIN 32.8 PG (27.0-31.0); MEAN CORPUSCULAR HGB CONC 34.5 g/dL (33.0-36.5); MEAN CORPUSCULAR VOLUME 95.1 FL (78-98); MEAN PLATELET VOLUME 7.1 FL (7.4-10.4); MONOCYTES # (AUTO) 0.6 X10'3 (0-0.9); MONOCYTES % (AUTO) 8.2 % (2-12); NEUTROPHILS # (AUTO) 6.1 X10'3 (1.8-7.7); NEUTROPHILS % (AUTO) 80.5 % (42-75); PLATELET COUNT 196 X10'3 (140-440); RED BLOOD COUNT 4.09 X10'6 (4.70-6.10); RED CELL DISTRIBUTION WIDTH 15.1 % (11.5-14.5); WHITE BLOOD COUNT 7.5 X10'3 (4.5-11.0)
[2023-06-22 00:06] LABS: ALBUMIN 3.2 G/DL (3.4-5.0); ANION GAP 10 (8-16); BLOOD UREA NITROGEN 29 MG/DL (7-18); BUN/CREATININE RATIO 27.9 (10.0-20.0); CALCIUM 8.9 MG/DL (8.5-10.1); CHLORIDE 96 MMOL/L (99-107); CREATININE 1.04 MG/DL (0.60-1.10); GLUCOSE 232 MG/DL (70-104); MAGNESIUM 1.9 MG/DL (1.5-2.4); POTASSIUM 4.6 MMOL/L (3.5-5.1); PRO BRAIN NATRIURETIC PEPTIDE 5790 PG/ML (0-450); SODIUM 128 MMOL/L (135-145); TOTAL CARBON DIOXIDE 21.6 MMOL/L (24-32); eCRCL 49 ML/MIN; eGFR 68 ML/MIN
[2023-06-22] MEDS: normal saline 1000ML IV soln IVB ONE (00:25)
[2023-06-22] MEDS: haloperidol 5mg tablet PO ONE (03:26)
[2023-06-22] MEDS ORDERED: acetaminophen 325mg tablet PO PRN ×2 (04:20)
[2023-06-22] MEDS ORDERED: magnesium 4gm in 100ml NS 100 ML IV PRN (04:20)
[2023-06-22] MEDS ORDERED: potassium Cl 20 mEq SR tablet PO PRN ×2 (04:20)
[2023-06-22] MEDS ORDERED: potassium Cl 40MEQ/1/2NS 520ml 520 ML IV PRN (04:20)
[2023-06-22] MEDS ORDERED: magnesium Cl slow-release 64mg tablet PO PRN (04:20)
[2023-06-22] MEDS ORDERED: magnesium 2GM in 50ml NS 50 ML IV PRN (04:20)
[2023-06-22] MEDS ORDERED: mag hydrox/Alum hydrox/simeth 30ml oral suspension PO PRN (04:20)
[2023-06-22 06:11] LABS: BILIRUBIN,URINE NEGATIVE (Neg); CLARITY,URINE SLIGHTLY CLOUDY (Clear); COLOR,URINE YELLOW (Yellow); GLUCOSE, URINE NEGATIVE (Neg); KETONES,URINE NEGATIVE (Neg); LEUKOCYTE ESTERASE ,URINE NEGATIVE (Neg); NITRITES, URINE NEGATIVE (Neg); OCCULT BLOOD,URINE NEGATIVE (Neg); PH,URINE 5.5 (4.8-8.0); PROTEIN,URINE TRACE mg/dl (Neg); UROBILINOGEN,URINE 0.2 E.U/dL (0.2-1.0)
[2023-06-22 06:20] LABS: UA COLLECTION TYPE CLN CATCH MIDSTREAM
[2023-06-22 06:21] LABS: MUCUS STRANDS MODERATE /LPF (Neg); SQUAMOUS EPITHELIAL CELL,UR MODERATE /LPF (FEW); TRANSITIONAL EPI CELLS,URINE MODERATE /HPF
[2023-06-22 06:23] LABS: BACTERIA,URINE FEW /HPF (Neg); RBC,URINE 0-2 /HPF (0-2)
[2023-06-22] MEDS: K and/or MAG REPLACEMENT MC SCH (08:00)
[2023-06-22] MEDS: heparin, porcine 5000 units/ml vial SQ SCH (08:33)
[2023-06-22] MEDS ORDERED: FURO20TA4 PO (13:45)
[2023-06-22] MEDS: ondansetron/PF 4mg/2ml inj IV ONE (15:30)
[2023-06-22 17:51] VITALS: BP 123/69; PULSE 99; RESP 20; TEMP 98.2; O2SAT 92
[2023-06-22 20:00] VITALS: RESP 20; O2SAT 95
[2023-06-22 22:00] VITALS: BP 110/70; PULSE 101; RESP 16; TEMP 98.5; O2SAT 93
[2023-06-22] MEDS ORDERED: glucagon, human recombinant 1mg kit SUBCUT PRN (23:35)
[2023-06-22] MEDS ORDERED: dextrose 50%-water 50ml dispensing syringe IV PRN ×2 (23:35)
[2023-06-22] MEDS ORDERED: DEXTROSE 15 GM of carb/4 tabs (each vial/BOTTLE has 4 tablets) PO PRN ×2 (23:35)
[2023-06-22] MEDS: ondansetron/PF 4mg/2ml inj IV PRN (23:36)
[2023-06-23] VITALS (8 sets, daily range): BP systolic 93–117; BP diastolic 58–72; PULSE 80–104; RESP 14–19; TEMP 97.1–97.9; O2SAT 91–98
[2023-06-23 06:27] LABS: BASOPHILS % (AUTO) 0.1 % (0-1); EOSINOPHILS % (AUTO) 0 % (0-6); HEMATOCRIT 38.6 % (42.0-52.0); HEMOGLOBIN 13.2 g/dl (14.0-17.9); LYMPHOCYTES # (AUTO) 0.6 X10'3 (1.1-4.8); LYMPHOCYTES % (AUTO) 9.3 % (21-51); MEAN CORPUSCULAR HEMOGLOBIN 32.5 PG (27.0-31.0); MEAN CORPUSCULAR HGB CONC 34.1 g/dL (33.0-36.5); MEAN CORPUSCULAR VOLUME 95.3 FL (78-98); MEAN PLATELET VOLUME 7.6 FL (7.4-10.4); MONOCYTES # (AUTO) 0.6 X10'3 (0-0.9); MONOCYTES % (AUTO) 8.6 % (2-12); NEUTROPHILS # (AUTO) 5.5 X10'3 (1.8-7.7); PLATELET COUNT 208 X10'3 (140-440); RED BLOOD COUNT 4.05 X10'6 (4.70-6.10); RED CELL DISTRIBUTION WIDTH 14.5 % (11.5-14.5); WHITE BLOOD COUNT 6.8 X10'3 (4.5-11.0)
[2023-06-23 06:40] LABS: ANION GAP 5 (8-16); BLOOD UREA NITROGEN 27 MG/DL (7-18); BUN/CREATININE RATIO 28.4 (10.0-20.0); CALCIUM 9.2 MG/DL (8.5-10.1); CHLORIDE 96 MMOL/L (99-107); CREATININE 0.95 MG/DL (0.60-1.10); GLUCOSE 258 MG/DL (70-104); MAGNESIUM 2.1 MG/DL (1.5-2.4); PHOSPHORUS 3.8 MG/DL (2.3-4.5); POTASSIUM 4.4 MMOL/L (3.5-5.1); SODIUM 129 MMOL/L (135-145); TOTAL CARBON DIOXIDE 27.6 MMOL/L (24-32); eCRCL 54 ML/MIN; eGFR 75 ML/MIN
[2023-06-23 07:18] LABS: HEMOGLOBIN A1C 7.9 % (4.5-6.2)
[2023-06-23] MEDS: aspirin 81mg, enteric-coated 1 TAB TABLET.DR PO SCH (08:01)
[2023-06-23] MEDS: multivitamins, therapeutics tablet PO SCH (08:02)
[2023-06-23] MEDS: cyanocobalamin 500mcg tablet PO SCH (08:02)
[2023-06-23] MEDS: metoprolol succinate 25mg (24-HOUR) SR. Tablet PO SCH (08:02)
[2023-06-23] MEDS: atorvastatin 20mg tablet PO SCH (08:02)
[2023-06-23] MEDS: ascorbic acid 500mg tablet PO SCH (08:02)
[2023-06-23] MEDS: INSULIN LISPRO 100 UNIT/ML INSULN.PEN MULTI-DOSE SQ SCH ×2 (09:00→10:36)
[2023-06-23] MEDS: insulin glargine (Lantus) pen - multi-dose SQ ONE (10:37)
[2023-06-23] MEDS: insulin glargine (Lantus) pen - multi-dose SQ SCH (21:39)
[2023-06-24] VITALS (7 sets, daily range): BP systolic 98–122; BP diastolic 56–68; PULSE 72–95; RESP 16–20; TEMP 96.9–98.3; O2SAT 86–94
[2023-06-24 06:24] LABS: BASOPHILS % (AUTO) 0.1 % (0-1); EOSINOPHILS % (AUTO) 0.7 % (0-6); HEMATOCRIT 37.1 % (42.0-52.0); HEMOGLOBIN 12.6 g/dl (14.0-17.9); LYMPHOCYTES # (AUTO) 1.3 X10'3 (1.1-4.8); LYMPHOCYTES % (AUTO) 25.4 % (21-51); MEAN CORPUSCULAR HEMOGLOBIN 32.6 PG (27.0-31.0); MEAN CORPUSCULAR VOLUME 95.9 FL (78-98); MEAN PLATELET VOLUME 7.8 FL (7.4-10.4); MONOCYTES # (AUTO) 0.6 X10'3 (0-0.9); MONOCYTES % (AUTO) 11.7 % (2-12); NEUTROPHILS # (AUTO) 3.2 X10'3 (1.8-7.7); NEUTROPHILS % (AUTO) 62.1 % (42-75); PLATELET COUNT 201 X10'3 (140-440); RED BLOOD COUNT 3.87 X10'6 (4.70-6.10); RED CELL DISTRIBUTION WIDTH 14.7 % (11.5-14.5); WHITE BLOOD COUNT 5.2 X10'3 (4.5-11.0)
[2023-06-24 06:25] LABS: ALBUMIN 2.7 G/DL (3.4-5.0); ANION GAP 8 (8-16); BLOOD UREA NITROGEN 27 MG/DL (7-18); BUN/CREATININE RATIO 30.7 (10.0-20.0); CALCIUM 8.7 MG/DL (8.5-10.1); CHLORIDE 98 MMOL/L (99-107); CREATININE 0.88 MG/DL (0.60-1.10); GLUCOSE 111 MG/DL (70-104); PHOSPHORUS 3.5 MG/DL (2.3-4.5); POTASSIUM 3.9 MMOL/L (3.5-5.1); SODIUM 132 MMOL/L (135-145); TOTAL CARBON DIOXIDE 25.7 MMOL/L (24-32); eCRCL 58 ML/MIN; eGFR 82 ML/MIN
[2023-06-24] MEDS: PERFLUTREN PROTEIN-A MICROSPHR (Optison) 0.22 MG/ML 3ML VIAL IV ONE (10:25)
[2023-06-24] MEDS: furosemide 20 MG/2 ML vial IV ONE (10:25)
[2023-06-24] MEDS ORDERED: albuterol 2.5 MG/3 ML nebule NEB PRN (16:55)
[2023-06-24] MEDS: furosemide 10 MG/1 ML 10ml inj IV ONE (18:30)
[2023-06-24] MEDS: ipratropium/albuterol 3ml nebule NEB SCH (19:28)
[2023-06-24] MEDS: budesonide 0.5mg/2ml UD nebule IH SCH (19:29)
[2023-06-25] VITALS (12 sets, daily range): BP systolic 103–121; BP diastolic 53–70; PULSE 81–98; RESP 14–22; TEMP 96.8–97.9; O2SAT 88–98
[2023-06-25 06:18] LABS: BASOPHILS % (AUTO) 0.3 % (0-1); EOSINOPHILS % (AUTO) 0.6 % (0-6); HEMATOCRIT 36.8 % (42.0-52.0); HEMOGLOBIN 12.4 g/dl (14.0-17.9); LYMPHOCYTES # (AUTO) 1.4 X10'3 (1.1-4.8); LYMPHOCYTES % (AUTO) 27.7 % (21-51); MEAN CORPUSCULAR HEMOGLOBIN 32.2 PG (27.0-31.0); MEAN CORPUSCULAR HGB CONC 33.8 g/dL (33.0-36.5); MEAN CORPUSCULAR VOLUME 95.1 FL (78-98); MEAN PLATELET VOLUME 7.2 FL (7.4-10.4); MONOCYTES # (AUTO) 0.6 X10'3 (0-0.9); MONOCYTES % (AUTO) 12.4 % (2-12); NEUTROPHILS # (AUTO) 3.1 X10'3 (1.8-7.7); PLATELET COUNT 211 X10'3 (140-440); RED BLOOD COUNT 3.86 X10'6 (4.70-6.10); RED CELL DISTRIBUTION WIDTH 14.5 % (11.5-14.5); WHITE BLOOD COUNT 5.2 X10'3 (4.5-11.0)
[2023-06-25 06:48] LABS: ALBUMIN 2.6 G/DL (3.4-5.0); ANION GAP 9 (8-16); BLOOD UREA NITROGEN 32 MG/DL (7-18); BUN/CREATININE RATIO 34.8 (10.0-20.0); CALCIUM 8.6 MG/DL (8.5-10.1); CHLORIDE 99 MMOL/L (99-107); CREATININE 0.92 MG/DL (0.60-1.10); GLUCOSE 132 MG/DL (70-104); MAGNESIUM 1.8 MG/DL (1.5-2.4); PHOSPHORUS 3.8 MG/DL (2.3-4.5); POTASSIUM 3.6 MMOL/L (3.5-5.1); SODIUM 133 MMOL/L (135-145); TOTAL CARBON DIOXIDE 25.5 MMOL/L (24-32); eCRCL 56 ML/MIN; eGFR 78 ML/MIN
[2023-06-25] MEDS: furosemide 20 MG/2 ML vial IV SCH ×2 (08:08→20:29)
[2023-06-25] MEDS ORDERED: magnesium hydroxide 30ml (MOM) UD suspension PO PRN (17:25)
[2023-06-25] MEDS: CefTRIAXone/D5W-Rocephin 1gm 50 ML IV ONE (20:29)
[2023-06-26 06:00] VITALS: BP 117/72; PULSE 89; RESP 14; TEMP 98.7; O2SAT 94
[2023-06-26 06:06] LABS: HEMATOCRIT 39.4 % (42.0-52.0); HEMOGLOBIN 13.3 g/dl (14.0-17.9)
[2023-06-26 06:09] LABS: BASOPHILS % (AUTO) 0.2 % (0-1); EOSINOPHILS % (AUTO) 0.3 % (0-6); LYMPHOCYTES # (AUTO) 1.6 X10'3 (1.1-4.8); LYMPHOCYTES % (AUTO) 23.2 % (21-51); MEAN CORPUSCULAR HEMOGLOBIN 32.2 PG (27.0-31.0); MEAN CORPUSCULAR HGB CONC 33.8 g/dL (33.0-36.5); MEAN CORPUSCULAR VOLUME 95.2 FL (78-98); MEAN PLATELET VOLUME 7.5 FL (7.4-10.4); MONOCYTES # (AUTO) 0.8 X10'3 (0-0.9); MONOCYTES % (AUTO) 11.7 % (2-12); NEUTROPHILS # (AUTO) 4.4 X10'3 (1.8-7.7); NEUTROPHILS % (AUTO) 64.6 % (42-75); PLATELET COUNT 241 X10'3 (140-440); RED BLOOD COUNT 4.14 X10'6 (4.70-6.10); RED CELL DISTRIBUTION WIDTH 14.3 % (11.5-14.5); WHITE BLOOD COUNT 6.9 X10'3 (4.5-11.0)
[2023-06-26 06:31] LABS: ALBUMIN 2.8 G/DL (3.4-5.0); ANION GAP 10 (8-16); BLOOD UREA NITROGEN 28 MG/DL (7-18); BUN/CREATININE RATIO 31.8 (10.0-20.0); CALCIUM 8.6 MG/DL (8.5-10.1); CHLORIDE 99 MMOL/L (99-107); CREATININE 0.88 MG/DL (0.60-1.10); GLUCOSE 126 MG/DL (70-104); MAGNESIUM 1.7 MG/DL (1.5-2.4); PHOSPHORUS 3.3 MG/DL (2.3-4.5); POTASSIUM 3.4 MMOL/L (3.5-5.1); SODIUM 134 MMOL/L (135-145); TOTAL CARBON DIOXIDE 25.4 MMOL/L (24-32); eCRCL 58 ML/MIN; eGFR 82 ML/MIN
[2023-06-26 07:05] VITALS: PULSE 92; RESP 14; O2SAT 91
[2023-06-26 07:20] VITALS: PULSE 93; RESP 14
[2023-06-26] MEDS: CefTRIAXone/D5W-Rocephin 1gm 50 ML IV SCH (08:42)
[2023-06-26] MEDS: lisinopril 5mg tablet PO SCH (08:53)
[2023-06-26 10:00] VITALS: BP 113/55; PULSE 93; RESP 14; TEMP 97.8; O2SAT 94
[2023-06-26] MEDS ORDERED: POTA-207 PO (10:02)
[2023-06-26] MEDS ORDERED: FURO40TA4 PO (10:02)
[2023-06-26] MEDS ORDERED: ALBU8HFA INH (10:02)
[2023-06-26] MEDS ORDERED: EMPA10TA PO (10:02)
[2023-06-26] MEDS ORDERED: CEFU500T66 PO (10:02)
[2023-06-26] MEDS ORDERED: BUDE10.22 INH (10:02)
[2023-06-26] MEDS ORDERED: LISI5TAB22 PO (10:02)
[2023-06-26 11:03] VITALS: PULSE 70; RESP 15; O2SAT 92
[2023-06-26] MEDS: EMPAGLIFLOZIN 10 MG TABLET PO SCH (11:32)
== END 2023-06-26 13:35 | disposition home health service (06) | DRG 640 ==
LOC: ER 22:21 → INTOOBSV 06-22 04:23 → ED HOLD 06-22 04:23 → UNDOADMOB 06-22 04:23 → OBSVTOIN 06-22 04:23 → ED HOLD 06-22 06:17 → OBSVTOIN 06-22 06:17 → SUR 3N 06-22 17:40 → ED HOLD 06-22 17:40
PROVIDERS: ADMIT Internal Medicine Sleep Medicine; ATTEND Family Medicine
DX: E87.1 Hypo-osmolality and hyponatremia (principal); I50.23 Acute on chronic systolic (congestive) heart failure; J96.00 Acute respiratory failure, unspecified whether with hypoxia or hypercapnia; N17.9 Acute kidney failure, unspecified; I11.0 Hypertensive heart disease with heart failure; M51.36 Other intervertebral disc degeneration, lumbar region; I25.10 Atherosclerotic heart disease of native coronary artery without angina pectoris; J40 Bronchitis, not specified as acute or chronic; J30.2 Other seasonal allergic rhinitis; Z79.899 Other long term (current) drug therapy; E11.9 Type 2 diabetes mellitus without complications; Z79.84 Long term (current) use of oral hypoglycemic drugs
CPT/HCPCS: 36415; 71045; 72100; 80048; 81001; 82948; 83036; 83735; 83880; 84100; 84132; 84145; 84484; 85025; 87081; 87088; 93005; 93306; 94640; 94760; 97110; 97116; 97161; 97530; 99285; A4615; G0378; J0696; J1644; J1815; J1940; J2405; J7030; J7040